=== PATIENT | female | born 1995 | race African-American/Black ===

== ENCOUNTER 2023-12-31 15:45 | Emergency (ER) | payer OTHER, SELFPAY ==
--- NOTE | 2023-12-31 15:48 | ED.BACK ---
HPI - Back Pain/Injury General Chief Complaint: Urogenital-Female Stated Complaint: back pain, lower left side Time Seen by Provider: 12/31/23 16:03 Source: patient, RN notes reviewed and old records reviewed Mode of arrival: ambulatory Limitations: no limitations History of Present Illness HPI Narrative: 28-year-old female presents to the [facility] with complaints of left lower back pain. Patient is concerned that she might have a UTI. 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 Does a lot of pushing pulling lifting. No erythema, ecchymosis. Denies any trauma. No midline tenderness. No loss retention of bowel or bladder. Denies abdominal pain, fevers. Related Data Home Medications Medication Instructions Recorded Confirmed amlodipine 10 mg tablet 10 mg PO DAILY 12/31/23 12/31/23 captopril 50 mg tablet 50 mg PO DAILY 12/31/23 12/31/23 carvedilol 12.5 mg tablet 12.5 mg PO DAILY 12/31/23 12/31/23 furosemide 40 mg tablet 40 mg PO DAILY 12/31/23 12/31/23 Allergies Allergy/AdvReac Type Severity Reaction Status Date / Time Penicillins Allergy Rash Verified 12/31/23 16:37 Review of Systems Review of Systems: All systems reviewed & are unremarkable except as noted in HPI and below Constitutional: Constitutional: Reports no additional constitutional complaints Eyes: Eyes: Reports no additional eye complaints ENT: Reports system reviewed and no additional complaints, except as documented Cardiovascular: Cardiovascular: Reports no additional cardiovascular complaints, Denies chest pain and Denies dyspnea Respiratory: Respiratory: Reports no additional respiratory complaints, Denies chest congestion, Denies cough and Denies dyspnea Gastrointestinal: Gastrointestinal: Reports no additional gastrointestinal complaints, Denies abdominal pain, Denies nausea and Denies vomiting Musculoskeletal: Musculoskeletal: Reports as per HPI and Reports back pain Integumentary/Breasts: Skin/Breast: Reports system reviewed and no additional complaints, except as docu Neurologic: Reports system reviewed and no additional complaints, except as documented Psychiatric: Psychiatric: Reports no additional psychiatric complaints Allergic/Immunologic: Allergic/Immunologic: Reports no additional allergic/immunologic complaints PMFSH Comments At the time of my signature, I reviewed and agree with the nursing past medical, surgical, social, and family history. There is no relevant family history pertinent to the patient complaint. Exam Const: General: cooperative, healthy appearing, comfortable, no acute distress, well developed, alert and well nourished Nutritional Appearance: well nourished Orientation/consciousness: patient oriented x3 Limitations: no limitations HENMT: Head: normal to inspection Ears: hearing grossly normal bilaterally and external ears normal Face/Nose/Sinus: Normal external nose present, Normal nares present, Normal nasal mucous membranes and turbinates present, normal facial exam and face symmetric Face and sinus: normal facial exam and face symmetric Eyes: General: appearance normal, both eyes and all related structures Alignment and Position: alignment normal Periorbital: periorbital findings normal Pupils: Equal, round and reactive pupils present EOM: EOMs intact bilaterally Neck: Neck: normal visual inspection, full ROM, no lymphadenopathy and no meningeal signs Chest: Chest palpation & inspection: normal inspection of the chest Resp: Effort & Inspection: normal respiratory effort and able to speak in complete sentences Cardio: Rate: regular rate Rhythm: regular rhythm GI: GI Palp: No abdominal tenderness : General: Yes no CVA tenderness Back/Spine/Pelvis: Cervical Spine: cervical ROM normal Thoracic/Lumbar Spine: paraspinal muscle tenderness on the left greater than right (Lower lumbar), No thoracic spinal tenderness and No lumbar spinal tenderness Skin: General skin exam: normal color and no rashes or lesions no
[2023-12-31 16:02] VITALS: BP 125/66; PULSE 68; RESP 18; TEMP 36.8; O2SAT 100
== END 2023-12-31 16:50 | disposition home or self-care (01) ==
PROVIDERS: Emergency Provider Nurse Practitioner; PCP Family Medicine
DX: S39.012A Strain of muscle, fascia and tendon of lower back, initial encounter (principal); X58.XXXA Exposure to other specified factors, initial encounter; I10 Essential (primary) hypertension
CPT/HCPCS: 81003; 87086; 99213; G0463

== ENCOUNTER 2024-08-28 11:57 | Emergency (ER) | payer OTHER, SELFPAY | END 2024-08-28 12:33 | disposition left against medical advice (07) | PROVIDERS: Emergency Provider Internal Medicine Hematology & Oncology; PCP Family Medicine | DX: Z53.21 Procedure and treatment not carried out due to patient leaving prior to being seen by health care provider (principal) | CPT/HCPCS: 99199 ==

== ENCOUNTER 2025-04-21 17:50 | Emergency (ER) | payer OTHER, SELFPAY ==
[2025-04-21 18:01] VITALS: BP 161/100; PULSE 85; RESP 18; TEMP 36.5; O2SAT 97
--- NOTE | 2025-04-21 18:13 | ED_ITS ---
HPI - General Adult General Chief complaint: Fall Stated complaint: Left Side Pelvic Pain Source: patient Mode of arrival: ambulatory Limitations: no limitations History of Present Illness HPI narrative: Pt is a 30 y/o female presenting with c/o L. pelvic pain. Pt reports falling while walking in her home 1 week ago. Pt states she fell backwards, into a seated position. She denies striking her head. She denies LOC. She denies feeling dizzy or lightheaded prior to fall. Pt reports persistent, worsening LLQ pain that is now radiating into the RLQ and into her pelvis. The pain is pulsating and constant. No relief with urination. No sx. No paresthesias to the extremities. Denies bowel/bladder incontinence. Denies urinary retention. Denies changes in bowel habits. Denies hematuria, BRBPR. No neck or back pain. Reports working for [employer]--they ran a urine dip which was unremarkable. States she went to [facility] ER prior to coming here but left due to it being too busy. No additional complaints. Related Data Home Medications ?Medication ?Instructions ?Recorded ?Confirmed ?Last Taken ?Type amlodipine 10 mg tablet 10 mg PO DAILY 12/31/23 12/31/23 Unknown History captopril 50 mg tablet 50 mg PO DAILY 12/31/23 12/31/23 Unknown History carvedilol 12.5 mg tablet 12.5 mg PO DAILY 12/31/23 12/31/23 Unknown History furosemide 40 mg tablet 40 mg PO DAILY 12/31/23 12/31/23 Unknown History Allergies Allergy/AdvReac Type Severity Reaction Status Date / Time Penicillins Allergy Rash Verified 04/21/25 17:57 Review of Systems Review of Systems: CONSTITUTIONAL: Denies body aches, fever, chills, or sweats. EYES: Denies visual changes, redness, or discharge. ENT: Denies rhinorrhea, congestion, sore throat, or otalgia. CARDIOVASCULAR: Denies chest pain, palpitations, or edema. RESPIRATORY: Denies cough or dyspnea. GASTROINTESTINAL: Reports LLQ, RLQ abdominal pain, denies nausea, vomiting, or diarrhea. GENITOURINARY: Denies dysuria or hematuria. SKIN: Denies rash, itching, or wounds. MUSCULOSKELETAL: Denies back pain, joint pain, or myalgia. NEUROLOGIC: Denies headache, numbness, tingling, or weakness. PSYCH: Denies depression or anxiety. All systems reviewed & are unremarkable except as noted in HPI and below Exam Narrative: GENERAL: Well-appearing, well-nourished, obese, uncomfortable. HEAD: Normocephalic, atraumatic. EYES: EOMI. No redness or drainage. Conjunctivae normal. ENT: Mucous membranes pink and moist. Nares clear. No rhinorrhea. TMs normal bilaterally. Throat normal. Uvula midline. NECK: Normal AROM. Supple. CHEST: No respiratory distress. Clear to auscultation. HEART: Regular rate and rhythm. No murmur appreciated. Normal peripheral pulses. ABDOMEN: Soft, nondistended, normal active bowel sounds. Moderate TTP to the LLQ, RLQ. MUSCULOSKELETAL: No bony tenderness. EXTREMITIES: Normal range of motion. No edema.No spinal process tenderness. FROM of spine and extremities without pain. SKIN: Warm, dry, no rash. Capillary refill normal. Normal skin turgor. NEURO: No focal deficits. Alert and oriented x3. Gait steady. PSYCH: Normal affect. No signs of depression or anxiety. Course Course Emergency Course: I offered to order pelvic/hip xrays however, given the degree of abdominal tenderness on exam, I will ultimately recommend she be transferred to ER for further diagnostic work up. Pt declined imaging at this facility and requested to be transferred to [facility] via POV. Pt is aware that she should go straight to ER and remain NPO until instructed otherwise. Verbal report given to JHON Lundy Level of Care: Express Care Visit Vital Signs Vital signs: Vital Signs Temperature 97.7 F 04/21/25 18:01 Pulse Rate 85 04/21/25 18:01 Respiratory Rate 18 04/21/25 18:01 Blood Pressure 161/100 H 04/21/25 18:01 Pulse Oximetry 97 04/21/25 18:01 Oxygen Delivery Room Air 04/21/25 18:01 Temperature 97.7 F 04/21/25 18:01 Pulse Rate 85 04/21/25 18:01 Respiratory Rate 18 04/21/25 18:01 Blood Pressure 161/100 H 04/21/25 18:01 Pulse Oximetry 97 04/21/25 18:01 Oxygen Delivery Room Air 04/21/25 18:01 Transfer Transfered to: [facility] Transportation: Other (POV) Transfer rationale: access to higher level of care. Accepting physician: [facility] Differential Diagnosis Differential Diagnosis: hip/pelvic fracture, intraabdominal injury, diverticulitis, colitis, appendicitis Vital Signs Vital Signs: Vital Signs Temperature 97.7 F 04/21/25 18:01 Pulse Rate 85 04/21/25 18:01 Respiratory Rate 18 04/21/25 18:01 Blood Pressure 161/100 H 04/21/25 18:01 Pulse Oximetry 97 04/21/25 18:01 Oxygen Delivery Room Air 04/21/25 18:01 Temperature 97.7 F 04/21/25 18:01 Pulse Rate 85 04/21/25 18:01 Respiratory Rate 18 04/21/25 18:01 Blood Pressure 161/100 H 04/21/25 18:01 Pulse Oximetry 97 04/21/25 18:01 Oxygen Delivery Room Air 04/21/25 18:01 Discharge Plan Discharge Clinical Impression: Abdominal pain, acute, left lower quadrant, Abdominal pain, acute, right lower quadrant, Fall, HTN (hypertension) Patient Disposition: Acute Care Hospital Condition: Stable Patient Language: Kyrgyz Prescriptions: No Action furosemide 40 mg tablet 40 mg PO DAILY carvedilol 12.5 mg tablet 12.5 mg PO DAILY amlodipine 10 mg tablet 10 mg PO DAILY captopril 50 mg tablet 50 mg PO DAILY baclofen 10 mg tablet 10 mg PO TID PRN (Reason: muscle pain) Qty: 10 0RF ibuprofen 600 mg tablet 600 mg PO TID PRN (Reason: fever or pain) Qty: 30 0RF Follow-up/Referrals: Spring,Jenniffer Lowery MD [Primary Care Provider] - Time of Disposition: 18:20
== END 2025-04-21 18:15 | disposition short-term general hospital (02) ==
PROVIDERS: Emergency Provider Registered Nurse; PCP Family Medicine
DX: R10.32 Left lower quadrant pain (principal); R10.31 Right lower quadrant pain; I10 Essential (primary) hypertension; W19.XXXA Unspecified fall, initial encounter
CPT/HCPCS: 99212; G0463

== ENCOUNTER 2025-04-21 18:28 | Emergency (ER) | payer OTHER, SELFPAY ==
--- OUTSIDE RECORDS SUMMARY | 2025-04-21 18:30 | XMS_ITS | Clinical Summary ---
Author Organization [facility] Address [address], [facility] [address] [place] [address] Phone Care Team Providers Care Baby Formula Worker Name Role Phone Jenniffer Londono MD Primary Care Provider + [phone] Allergies No known active allergies Medications amLODIPine (NORVASC) 10 MG Tablet Take 10 mg by mouth daily. Active carvedilol (COREG) 25 MG Tablet Take 25 mg by mouth 2 times daily. 4 Active losartan (COZAAR) 25 MG Tablet Take 25 mg by mouth daily. Active ferrous sulfate 325 (65 Fe) MG Tablet Take 1 Tablet by mouth daily. 60 Tablet 3 5 Active Cyanocobalamin (B-12) 1000 MCG SL Tablet 1,000 mcg by Sublingual route daily for 30 days. 30 Each 2 5 05/09/20 25 Active folic acid (FOLVITE) 1 MG Tablet Take 1 Tablet by mouth daily. 30 Tablet 2 5 Active Active Problems No known active problems Encounters Date Type Department Care Team Description 04/09/2025 Results Follow-Up [facility] [address] [id number] Seema Sandoval RN ERYTHROCYTE SEDIMENTATION RATE (ESR), RETICULOCYTE COUNT (RETIC), FOLIC ACID (FOLATE), Additional followed-up results: 7 04/07/2025 12:00 PM CDT Lab [facility] [address] [phone] Lab, Cc Arethaon Thrombocytosis 04/07/2025 10:30 AM CDT Office Visit [facility] [address] [phone] Bong Shi MD Thrombocytosis (Primary Dx) 04/07/2025 Travel from Last 3 Months Family History Medical History Relation Name Comments Asthma Mother Hypertension Mother Relation Name Status Comments Brother 1 Alive Brother 2 Alive Child 1 Alive Child 2 Alive Child 3 Alive Father Mother Alive Sister Alive Social History Tobacco Use Types Packs/Day Years Used Date Smoking Tobacco: Every Day Cigarettes Cigars Smokeless Tobacco: Never Tobacco Cessation:Ready to Q uit: Not Asked; Counseling Given: Not Answered Alcohol Use Standard Drinks/Week Comments Yes 0 (1 standard drink = 0.6 oz pur e alcohol) rarely Comments Unknown Sex and Gender Information Value Date Recorded Sex Assigned at Not on file Legal Sex Female 2:31 PM CDT Gender Identity Not on file Sexual Orientation Not on file Last Filed Vital Signs Vital Sign Reading Time Taken Comments Blood Pressure 134/84 04/07/2025 10:52 AM CDT Pulse 58 04/07/2025 10:52 AM CDT Temperature 36.9 C (98.4 F) 04/07/2025 10:52 AM CDT Respiratory Rate 18 04/07/2025 10:52 AM CDT Oxygen Saturation 99% 04/07/2025 10:52 AM CDT Inhaled Oxygen Concentration - - Weight 95.3 kg (210 lb) 04/07/2025 10:52 AM CDT Height 157.5 cm (5' 2) 04/07/2025 10:52 AM CDT Body Mass Index 38.41 04/07/2025 10:52 AM CDT Plan of Treatment Upcoming Encounters Date Type Department Care Team (Late st Contact Info) Description 05/17/2025 2:30 PM CDT Office Visit [facility] [address] [phone] Bong Shi MD [address] [place] [phone] Health Maintenance Due Date Last Done Comments Hepatitis C Virus (HCV) Screening 1995 Pneumococcal Immunization Combined (1 of 2 - PCV) 2014 Pap Smear 2016 SARS-COV-2 Immunization (3 - season) 2024 05/20/2021, 04/22/2021 Cervical Cancer Screening (CCS) 2025 HPV/Cotest 2025 Influenza Immunization (#1) 2025 1001/2023, 08/18/2021, 07/07/2019 Respiratory Syncytial Virus (RSV) Immunization (Adult) (1 - 1-dose 75+ series) 2070 Human Papillomavirus (HPV) Immunization Completed 11/21/2010, 07/15/2010, 03/18/2010 Meningococcal Immunization (ACWY) Completed 11/12/2013, 03/18/2010 Hepatitis B Immunization Completed 023, 1995, 1995, Additional history exists TdaP Immunization Completed 07/04/2023, , 03/18/2010 Rotavirus Immunization Aged Out No lo nger eligible based on patient's age to complete this topic Procedures Procedure Name Priority Date/Time Associated Diagnosis Comments CBC WITH AUTO DIFF [place] Routine 04/07/2025 12:01 PM CDT FERRITIN [id number] [place] Routine 04/07/2025 12 :01 PM CDT COMP. METABOLIC PANEL [id number] [place] Routine 04/07/2025 12:01 PM CDT IRON AND TIBC [id number] [place] Routine 04/07/2025 12:01 PM CDT TSH [id number] [place] Routine 04/07/2025 12:01 PM CDT LACTATE DEHYDROGENASE (LD) Routine 04/07/2025 12:01 PM CDT Thrombocytosis VITAMIN B12 Routine 04/07/2025 12:01 PM CDT Thrombocytosis FOLIC ACID (FOLATE) Routine 04/07/2025 1 2:01 PM CDT Thrombocytosis RETICULOCYTE COUNT (RETIC) Routine 04/07/2025 12:01 PM CDT Thrombocytosis ERYTHROCYTE SEDIMENTATION RATE (ESR) Routine 04/07/2025 12:01 PM CDT Thrombocytosis ONKOSIGHT NGS JAK2 V617F REFLEX JAK2 EXON 12, CALR AND H Routine 04/07/2025 12:01 PM CDT Thrombocytosis from Last 3 Months Results * (ABNORMAL) IRON AND TIBC [id number] [place] (04/07/2025 12:01 PM CDT) Iron Bind.Cap.(TIBC) 340 250 - 450 UG/DL CANCER SERVER MANAGER [facility] UIBC 302 131 - 425 UG/DL CANCER SERVER MANAGER [facility] Iron, Serum 38 27 - 159 UG/DL [facility] Iron Saturation 11(L) 15 - 55 % [facility] 04/07/2025 12:0 1 PM CDT Narrative [facility] - 04/08/2025 10:07 AM CDT TESTING PERFORMED AT: [] [facility], [address] [place] [address], [place], [address], PHONE: [phone], IT COMMUNICATIONS SPECIALIST: BRUNO CASTILLO, PHD us Bong Shi MD LAB SEND OUTS Final Resul t CANCER SERVER MANAGER [facility] [place] [address], * FERRITIN [id number] [place] (04/07/2025 12:01 PM CDT) Ferritin, Serum 40 15 - 150 NG/ML CANCER SERVER MANAGER [facility] 04/07/2025 12:0 1 PM CDT Narrative [facility] - 04/08/2025 7:08 AM CDT TESTING PERFORMED AT: [] [facility], [address] [place], [place], [address], PHONE: [phone], IT COMMUNICATIONS SPECIALIST: BRUNO CASTILLO, PHD us Bong Shi MD LAB SEND OUTS Final Resul t CANCER SERVER MANAGER [facility] [address] [place] [address], [place] [phone] * (ABNORMAL) COMP. METABOLIC PANEL [id number] [place] (04/07/2025 12:01 PM CDT) GLUCOSE, SERUM 91 70 - 99 MG/DL [facility] SERVER MANAGER [facility] BUN 5(L) 6 - 20 MG/DL [facility] CREATININE, SERUM 0.66 0.57 - 1.00 MG/DL [facility] EGFR 121 >59 ML/MIN/1.[address] [facility] BUN/CREATININE RATIO 8(L) 9 - 23 [facility] SODIUM, SERUM 139 134 - 144 MMOL/L [facility] POTASSIUM, SERUM 4.0 3.5 - 5.2 MMOL/L [facility] CHLORIDE, SERUM 103 96 - 106 MMOL/L [facility] CARBON DIOXIDE, TOTAL 20 20 - 29 MMOL/L [facility] CALCIUM, SERUM 9.4 8.7 - 10.2 MG/DL [facility] PROTEIN, TOTAL, SERUM 7.1 6.0 - 8.5 G/DL [facility] ALBUMIN, SERUM 4.3 4.0 - 5.0 G/DL [facility] GLOBULIN, TOTAL 2.8 1.5 - 4.5 G/DL [facility] BILIRUBIN, TOTAL 0.3 0.0 - 1.2 MG/DL [facility] ALKALINE PHOSPHATASE, S 90 44 - 121 IU/L [facility] AST (SGOT) 16 0 - 40 IU/L [facility] SERVER MANAGER [facility] ALT (SGPT) 20 0 - 32 IU/L CANCER SERVER MANAGER [facility] 04/07/2025 12:0 1 PM CDT Narrative CANCER SERVER MANAGER [facility] - 04/08/2025 10:07 AM CDT TESTING PERFORMED AT: [] [facility], [address] [place] [address], [address], PHONE: [phone], IT COMMUNICATIONS SPECIALIST: BRUNO CASTILLO, PHD us Bong Shi MD LAB SEND OUTS Final Resul t Performing Organization Address [facility] Co de Phone Number CANCER SERVER MANAGER [facility] [address] [place] [address], [place] [phone] * TSH [id number] [place] (04/07/2025 12:01 PM CDT) TSH 1.250 0.450 - 4.500 UIU/ML CANCER SERVER MANAGER [facility] 04/07/2025 12:0 1 PM CDT [facility] CANCER SERVER [facility] - 04/08/2025 10:07 AM CDT TESTING PERFORMED AT: [] [facility], [address] [place] [address], [id number], PHONE: [phone], IT COMMUNICATIONS SPECIALIST: BRUNO CASTILLO, PHD us Bong Shi MD LAB SEND OUTS Final Resul t Performing Organization Address [facility] Co de Phone Number CANCER SERVER MANAGER [facility] [address] [place] [address], [place] [phone] * (ABNORMAL) CBC WITH AUTO DIFF [place] (04/07/2025 12:01 PM CDT) WBC 9.0 4.0 - 10.0 10*3/uL CANCER SERVER MANAGER [facility] HGB 12.5 11.2 - 15.7 g/dL CANCER SERVER MANAGER [facility] HCT 39.0 34.1 - 44.9 % CANCER SERVER MANAGER [facility] PLT 460(H) 163 - 369 10*3/uL CANCER SERVER MANAGER [facility] MPV 8.9(L) 9.4 - 12.4 fL CANCER SERVER MANAGER [facility] RBC 4.51 3.93 - 5.22 10*6/uL CANCER SERVER MANAGER [facility] MCV 87 79 - 95 fL CANCER SERVER MANAGER [facility] MCH 27.7 25.6 - 32.2 pg CANCER SERVER MANAGER [facility] MCHC 32.1(L) 32.2 - 36.5 g/dL CANCER SERVER MANAGER [facility] RDW 13.4 11.6 - 14.4 % CANCER SERVER MANAGER [facility] Neutrophils % 61.8 36.0 - 66.0 % CANCER SERVER MANAGER [facility] Lymphocytes % 28.4 19.0 - 40.0 % CANCER SERVER MANAGER [facility] Monocytes % 5.8 4.1 - 12.1 % CANCER SERVER MANAGER [facility] Eosinophils % 3.2 0.0 - 3.5 % [facility] SERVER MANAGER [facility] Basophils % 0.4 0.0 - 1.0 % [facility] Absolute Neutrophils 5.6 1.4 - 6.6 10*3/uL [facility] Absolute Lymphocytes 2.6 0.8 - 4.0 10*3/uL [facility] Absolute Monocytes 0.5 0.2 - 1.2 10*3/uL [facility] SERV[facility] Absolute Eosinophils 0.3 0.0 - 0.4 10*3/uL [facility] SERV[facility] Absolute Basophils 0.0 0.0 - 0.1 10*3/ [facility] 04/07/2025 12:0 1 PM CDT us Bong Shi MD LAB SEND OUTS Final Resul t CANCER SERVER MANAGER [facility] [place] [address], * [facility] JAK[facility] V617F REFLEX JAK2 EXON 12, CALR AND H (04/07/2025 12:01 PM CDT) NGS JAK2 V617 RX EXON12 NORMAL CANCER SERVER MANAGER [facility] ONKOSIT NGS MPL SEQUENCING NORMAL CANCER SERVER MANAGER [facility] JAK2 EXON 12 SEQUENCING NORMAL CANCER CE NTER SPECIALISTS [facility] ONKOSIST. [facility] NGS CALR SEQUENCING NORMAL CANCER SERVER MANAGER [facility] ONSIST. [facility] NGS JAK2 V617F SEQUENCING NORMAL CANCER CENT ER SPECIALISTS [facility] Comment: On[employer] JAK2 V617F Rx JAK2 Exon 12, CALR & MPL Final Report - RESULT SUMMARY: NORMAL - DETECTED GENOMIC ALTERATIONS: No Mutations Identified - TUMOR TYPE: Not Provided - CLINICAL INFORMATION: Provided ICD-10 code: D75.839 (thrombocytosis, unspecified). - PERTINENT NEGATIVE RESULTS: The following genes are NEGATIVE for clinically relevant mutations. Mutational hotspots and surrounding exonic regions were interrogated for DNA level point mutations and indels (fusions not assayed). CALR, JAK2 Exon12, JAK2 V617F, MPL - MUTATIONAL HOTSPOTS: The following recurrently mutated codons demonstrated adequate sequencing coverage depths and show wild type sequences only. Gene: CALR Codons: 367, 385 Gene: JAK2 Codons: 533, 534, 535, 536, 537, 538, 539, 540, 541, 542, 543, 544, 545, 546, 547, 617 Gene: MPL Codons: 515 The following recurrently mutated codons demonstrated inadequate sequencing coverage depths (<100x), and the possibility of undersensitive detection cannot be excluded. Not Applicable - TRANSCRIPT ACCESSIONS FOR INTERROGATED GENES: Gene: CALR Transcript ID: [id number] Gene: JAK2 Transcript ID: [id number] Gene: MPL Transcript ID: [id number] - COVERAGE DEPTHS: Among the following targeted exons, >50% of coding sequences failed to achieve >100x coverage depths. Analytic sensitivity for potentially relevant genomic alterations may therefore be limited among the following interrogated loci: Not Applicable INTERPRETATION SUMMARY SEE BELOW CANCER [facility] Comment: INTERPRETATION SUMMARY: - This was a NORMAL sequencing study in which no disease associated mutations or variants of unclear significance were identified in the tested specimen. The absence of mutations should be interpreted in the context of other clinical and pathologic findings. Normal sequencing results may be a consequence of testing a sample with little or no neoplastic cells present. Clinical and pathologic correlation is required to interpret these findings. METHODS SEE BELOW [facility] Comment: METHODS: Tissue macrodissection and DNA isolation from tumor enriched areas are based on histologic review by an appropriately board certified pathologist; specimens with minimal tumor cellularity may be rejected. Nucleic acid is isolated from the submitted specimen. Anchored Multiplex PCR (AMP) is performed to generate target-enriched next generation sequencing (NGS) libraries. AMP utilizes unidirectional gene-specific primer (GSP) oligonucleotides that enrich for both known and unknown mutations. Each genomic DNA fragment is also tagged with a unique molecular identifier sequence (BERTHA), used after sequencing on an Illumina Portapureq instrument ([place], [place]) with paired end, 151 base pair reads to collapse PCR duplicates and enable accurate counting of variant allelic frequencies. A minimum number of 100 unique reads (after removal of PCR duplicates) to detect a mutation is required. An automated process that takes into account statistical confidence of base calling and alignment and mapping quality identifies variants (Derivix Analysis Software version 6.2.7, Released 24 Feb 2020). Following mapping of the read data to the human genome (reference build [id number]/hg19), single nucleotide variants (SNVs), and insertion deletion events (Indels) with an allele frequency (AF) greater than 2% are detected utilizing [employer] Analysis bioinformatic analytical pipeline with the exception of FLT3 (0.8% AF), JAK2 p.V617F (0.8% AF) and MYD88 p.L265P (1% AF). Detection of Insertions larger than 63 bases have not been validated. Detection of Deletions larger than 52 bases have not been validated. Reported variants include known disease associated mutations and unclear variants with little or no literature support. Benign population polymorphisms are not included in the report. The mutation hotspots of the following genes were interrogated by this test: JAK2 V617F, JAK2 Exon 12, MPL and CALR.Variant Tier categorization is rendered in accordance with the AMP/ASCO/CAP consensus recommendations (see Li et al. Standards and Guidelines for the Interpretation and Reporting of Sequence Variants in Cancer: A Joint Consensus Recommendation of the Association for Molecular Pathology, [place] Society of Clinical Oncology, and College of [place] Pathologists. The Journal of molecular diagnostics: JMD. 2017 Sep;19(1):4-23. doi: 10.1016/j.jmoldx.2016.10.002. PubMed Central PMCID: QRF6114034. PubMed PMID: (09983354)). OnkoSightAdvanced was developed and its performance characteristics were determined by [employer], a division of [employer]. This test has not been cleared or approved by the US Food and Drug Administration (FDA). The FDA has determined that such a clearance or approval is not necessary. Pursuant to the requirements of CLIA'88, this laboratory has established and verified the tests accuracy and precision. However, a false positive or false negative result incurred during any phase of the testing cannot be completely excluded. Large insertion/deletion (eg. FLT3-ITD aberrations) may not be detected by this assay due to the limit of sequencing read length and bioinformatics processing. This assay does not detect translocation/gene fusion. This assay does not determine variant causality, or whether a variant is inherited or somatically acquired. These results may be used for clinical or research purposes and therefore should be carefully considered within the context of other clinical and laboratory data. In the absence of an appropriate clinical context, the clinical utility of OnkoSighttesting is not clearly defined. The information contained in this report reflects the current interpretation of the findings as of the date of the report, based on the available scientific information. This information, which comes from numerous sources, is subject to jacket changer time in response to future scientific and medical findings and correlations. [employer] makes no representation or warranty of any kind regarding the accuracy of information provided or contained in these manuscripts, references or other sources of information. If any of the information provided by or contained in the referenced material is later deemed to be inaccurate, this may impact the accuracy of this report and interpretation of the findings. [employer] is not obligated to notify you of any impact that additional or modified information, or future scientific or medical research may have on this report. The laboratory is not responsible for reanalysis of the data or updated classification of this report or past reportsfindings as the knowledge evolves. A medical provider can request a reassessment of clinical significance of variants and/or re-review of the clinical interpretation of the findings. Additional charges may apply for the updated report. Please contact the laboratory for more information if update is requested. This assay has been approved by the [facility] based on initial validation; orthogonal testing for full validation is currently ongoing. Please contact the laboratory for more information if update is requested. REFERENCES 1 SEE BELOW CANCER SERVER MANAGER [facility] Comment: REFERENCES: 1. Radha MM, Samantha M, Margoth EJ, Valeri S, Neha NI, Scott S, Demian AM, Sajan CL, Christelle DJ, Yi A, [place]. Standards and Guidelines for the Interpretation and Reporting of Sequence Variants in Cancer: A Joint Consensus Recommendation of the Association for Molecular Pathology, [place] Society of Clinical Oncology, and College of [place] Pathologists. The Journal of molecular diagnostics : JMD. 2017 Sep;19(1):4-23. doi: 10.1016/j.jmoldx.2016.10.002. PubMed PMID: 66156423. PubMed Central PMCID: [id number]. 2. Genome Aggregation Database (gnomAD), [place], [place] (URL: https://gnomad.broadFly Victortitute.org) [March,] 3. Lisy Batres. World health organization classification, evaluation, and genetics of the myeloproliferative neoplasm variants. Hematology. [place] Society of Hematology. Education Program. 2010;5996970-0. doi: 10.1182/asheducation-2010.1.250. PubMed PMID: 78755660. 4. Coy P, Kalpesh A, Landy R, Looser R, Anton-Solomon H, Xin I, Girsberger S, Bhargav T, Lina J, Keller M, Marlee C, Bryant R, Skcherrie RC. Clonal evolution and clinical correlates of somatic mutations in myeloproliferative neoplasms. Blood. 2014 Dec 31;123(14):2220-8. Epub 2013Oct 28. doi: 10.1182/jkswz-6781-05-851978. PubMed PMID: 37621172. 5. Jenniferini E, Bernardis I, Artusi V, Artuso L, Roncabhavinia E, Fletcher P, Clintoni L, Farrahani C, Porshae F, Serafino G, Tomi C, Betsy E, Devika A, Zaheer T, Elier Bradford, Bryant S, Srinivas R, Elisa OSMAN, Mami Bedolla, Targeted cancer exome sequencing reveals recurrent mutations in myeloproliferative neoplasms. Leukemia. 2014 January;28(5):1052-9. Epub 2012Jul 21. doi: 10.1038/kwasi.2013.302. PubMed PMID: 08398209. PubMed Central PMCID: AHZ7013947. 6. Kalyan T, Simon D, Yuly N, Vitaliy N, Blari Y, Krista Y, Enjacqueline Y, Juanis N, Uchida T, Kaanne Y, Noam K, Camronta CHERIE, Nagase R, Horikawa S, Marly Y, Saimelda M, Fukuymelida T, Bony K, Oki T, Leroy F, Vanna Higginbotham. The molecular basis of myeloid malignancies. Proceedings of the [place] Academy. Series B, Physical and biological sciences. 2014;90(10):389-404. PubMed PMID: 67687488. PubMed Central PMCID: KYZ1369750. REPORT FOOTER SEE BELOW CANCER SERVER MANAGER [facility] Comment: Airam Toure M.D., [employer] Central Office Installer Electronically signed by Mercedez Teran, PhD, [facility] [employer] is a division of [employer] [facility] [place] [address] Created SatApr 13 18:20:12 EDT 2024 04/07/2025 12:0 1 PM CDT Narrative CANCER SERVER MANAGER [facility] - 04/13/2025 6:46 PM CDT Testing performed at: [facility] [place] [address], [employer] Central Office Installer: Dr. Tin Zarate M.D.; [facility] Accn#:[id number] Release to patient->Immediate us Bong Shi MD LAB SEND OUTS Final Resul t CANCER SERVER MANAGER [facility] [place] [address], [place] [phone] * VITAMIN B12 (04/07/2025 12:01 PM CDT) Vitamin B12 186 180 - 914 pg/mL CANCER SERVER MANAGER [facility] Blood 04/07/2025 12:0 1 PM CDT [facility] CANCER SERVER MANAGER [facility] - 04/08/2025 2:21 PM CDT Release to patient->Immediate us Bong Shi MD CHEMISTRY ORDERABLES Final Result Performing Organization Address City/[facility]/ZIP Co de Phone Number CANCER SERVER MANAGER [facility] [address] [place] [address], [place] [phone] * ERYTHROCYTE SEDIMENTATION RATE (ESR) (04/07/2025 12:01 PM CDT) Erythrocyte Sedimentation Rate 10 0 - 30 mm/hr CANCER SERVER MANAGER [facility] Blood 04/07/2025 12:0 1 PM CDT [facility] CANCER SERVER MANAGER [facility] - 04/07/2025 1:19 PM CDT Release to patient->Immediate us Bong Shi MD HEMATOLOGY ORDERABLES Final Result Performing Organization Address [facility] Co de Phone Number [facility] [facility] [address] [place] [address], * RETICULOCYTE COUNT (RETIC) (04/07/2025 12:01 PM CDT) Reticulocyte count 1.60 0.50 - 1.70 % CANCER SERVER MANAGER [facility] RET-He 30.50 28.20 - 36.60 pg CANCER SERVER MANAGER [facility] Comment: RET-He is a direct assessment of incorporation of iron into erythrocyte hemoglobin. It provides an indirect measure of the iron available for new erythropoiesis over past 2-4 days. Blood 04/07/2025 12:0 1 PM CDT [facility]ER [facility]ER [facility] - 04/07/2025 12:21 PM CDT Release to patient->Immediate us Bong Shi MD HEMATOLOGY ORDERABLES Final Result Performing Organization Address [facility] Co de Phone Number CANCER SERVER MANAGER [facility] [place] [place] [address], [place] [phone] * (ABNORMAL) LACTATE DEHYDROGENASE (LD) (04/07/2025 12:01 PM CDT) LDH 124(L) 140 - 271 U/L CANCER SERVER MANAGER [facility] Blood 04/07/2025 12:0 1 PM CDT [facility] CANCER [facility]ER [facility]NA[facility] - 04/07/2025 12:55 PM CDT Release to patient->Immediate us Bong Shi MD CHEMISTRY ORDERABLES Final Result Performing Organization Address [facility] de Phone Number CANCER SERVER MANAGER [facility] [place] [address], [place] [phone] * (ABNORMAL) FOLIC ACID (FOLATE) (04/07/2025 12:01 PM CDT) Folate 5.34(L) >=5.90 ng/mL CANCER SERVER MANAGER[facility] Blood 04/07/2025 12:0 1 PM CDT [facility] CANCER SERVER [facility]NA[facility] - 04/08/2025 2:21 PM CDT Release to patient->Immediate IS THE PATIENT REQUIRED TO BE FASTING FOR 12 HOURS?->No us Bong Shi MD CHEMISTRY ORDERABLES Final Result Performing Organization Address [facility] Co de Phone Number CANCER SERVER MANAGERCHI [facility] [place] [address], [place] [phone] from Last 3 Months Insurance MEDICAID AETNA [facility] Care Teams Baby Formula Worker Relationship Specialty Start Date End Date Jenniffer Londono MD [address] [facility] [address] [place] [address] PCP - General Internal Medicine 03/26/25
--- OUTSIDE RECORDS SUMMARY | 2025-04-21 18:30 | XMS_ITS | Referral Summary ---
Author Organization [facility] Address [address] [place] [address] Care Team Providers Care Ship Worker Name Role Phone Tin Engle MD Primary Care Provider [phone] Encounters Date Type Department Care Team Description 01/27/[address] [facility] Department of Surgery [address] [place] [address] [place] [address] Prema Horan 01/21/2025 8:10 AM CDT Lab [facility] [address] [place] [address] for Outpatient Health [place], [place] [id number] Umbilical hernia without obstruction and without gangrene from Last 3 Months Allergies Active Allergy Reactions Criticality Noted Date Comments Amoxicillin-Pot Clavulanate Rash Medium Penicillins Hives,Rash Medium 11/30/2017 Hives Medications acetaminophen 500 mg capsuleIndicati ons:Pain Take 2 capsules (1,000 mg total) by mouth every 6 (six) hours as needed for pain 60 tablet 08/12/2023 Active losartan (COZAAR) 25 mg tablet Take 1 tablet (25 mg total) by mouth daily Active amLODIPine (NORVASC) 10 mg tablet Take 1 tablet (10 mg total) by mouth daily Active carvediloL (COREG) 25 mg tablet Take 1 tablet (25 mg total) by mouth 2 (two) times a day with meals Active furosemide (LASIX) 40 mg tablet Take 1 tablet (40 mg total) by mouth 2 (two) times a day Active captopriL (CAPOTEN) 50 mg tablet Take 1 tablet (50 mg total) by mouth 2 (two) times a day 05/19/2024 Active Active Problems Problem Noted Date Diagnosed Date Umbilical hernia 03/06/2023 Overview (06/21/2023): 03/06 - Reports pain at umbilicus and area superior to umbilicus. States it is intermittent and worsened with activity. Exam tender to palpation. 2cm area superior to umbilicus c/w umbilical hernia. Patient given precautions about incarceration and given ABD binder. Will CTM. Patient with questions about umbilical hernia at 06/21 visit. Wondering if it can be repaired at the time of her . Discussed that given we would be performing her section via Pfannenstiel, we likely would not be able to access her hernia at that time. Discussed that we could refer her to General Surgery for repair . Cystic fibrosis carrier 01/28/2023 Overview (01/28/2023): FOB tested in last and is negative Sciatic nerve pain 01/28/2023 Overview (01/28/2023): 01/28- Reports h/o sciatic nerve pain. Has previously been referred to PT. Recently started to act up. Encouraged exercises and walking. Will CTM. Pt to consider PT but at this time declines referral. H/O section 08/18/2019 Overview (06/21/2023): Two previous rCS. Discussed in clinic 06/21/23. Patient desires rCS, as she is afraid of pushing a baby out. Patient also sure that this is her last child. Discussed tubal at the time of rCS, patient has signed state consents but she is still considering. Afraid of how her cycles might change after a tubal. Counseled patient that generally a tubal or salpingectomy should not alter menstrual cycles. Resolved Problems Problem Noted Date Diagnosed Date Resolved Date Encounter for maternal care for low transverse scar from repeat delivery 08/09/2023 07/22/2024 Overview (08/09/2023): Chantal Sanders is a 28 y.o. female at 38w5d who is dated by 1st trimester ultrasound and is being admitted for a scheduled repeat due to cHTN . Admit to L&D: Consents signed and placed in chart. Labs: CBC and T&S pending. section after labs return. FWB: Continuous monitoring. tracing category I. ID: 3rd trimester HIV (>28 wga) negative on 07/04. GBS negative on 07/17 . RPR on admission: pending. Membrane Status: intact. Indications for UDS: none. Verbal consent obtained for UDS: Not indicated. MOF: Plans to breastfeed. Urine drug screen not indicated. Patient informed of results: N/A. MOC: Desires permanent sterilization, consents mature and signed on 06/12 (visualized in medical record). Pain management: CSE to be placed in the OR. Post DVT prophylaxis: The patient has the following MAJOR risk factors none and the following MINOR risk factors BMI 30-39, delivery, and parity >/=3. enoxaparin 40 mg daily will be ordered for VTE prophylaxis . complications: #Hx CS x2: LTCS x2, unknown indications. Last op note with thick adhesive peritoneal band and fascial adhesive disease. Desires rCS. #cHTN: Baseline CBC/CMP wnl, UPC 0.06. Current regimen: labetalol 200mg BID. For CBC/CMP on admission. #Umbilical hernia: 2cm area superior to umbilicus c/w umbilical hernia. For referral to general surgery for repair. #CF carrier: Partner testing negative. #Sciatica: PT referral previously sent. #MO: BMI 35. #Rubella NI: For MMR . care following delivery 08/09/2023 07/22/2024 Overview (08/12/2023): # ID: Afebrile. WBC 19 from 11, no signs/symptoms of infection. CTM at this time. #Rubella NI: For MMR , ordered # Heme: EBL 1000 mL. Hemodynamically stable. POD1 Hgb 7.4. counseled and ordered iron infusion # CV/Pulm: Chronic hypertension - Blood pressures well controlled on labetalol 200 BID. Asymptomatic, denies MONDRAGON/RUQ pain/vision changes. CBC/CMP WNL, UPC not collected. Enrolled in home BP monitoring. # GI/: Tolerating PO. Voiding spontaneously. #Umbilical hernia: 2cm area superior to umbilicus c/w umbilical hernia. For referral to general surgery as outpatient for repair. #Sciatica: PT referral previously sent. # Pain: not fully controlled with above regimen. 1 time dose oxy given and encouraged patient to take gabapentin today. # MOC: s/p BTL. # MOF: . Urine drug screen not indicated. Patient informed of results: N/A. # Post DVT prophylaxis: The patient has the following MAJOR risk factors none and the following MINOR risk factors BMI 30-39, delivery, and parity >/=3. enoxaparin 40 mg daily ordered for VTE prophylaxis. # Disposition: Follow up task sent to [facility] scheduling pool. Continue routine care. Desires dc home tomorrow Chronic hypertension affecting 01/28/2023 07/22/2024 Overview (06/21/2023): S/p counseling. CURRENT REGIMEN: ASA 81 mg daily, labetolol 200 BID Plan: [x] ASA at 12 weeks [x] Baseline labs (CBC, CMP, UPC): Plt 398, Cr 0.61, AST/ALT 20/19, UPC 0.06 [ ] Secondary HTN work-up (if resistant to tx, dx < 30 years): N/A [x] EKG/Echo (if dx>4 years or >30): EKG NSR 05/29/23 [ ] Serial growth ultrasound starting at 24 weeks: most recently AGA 06/21 [ ] Weekly testing at 32 weeks if requiring antihypertensive: ordered today Encounter for supervision of normal in third trimester 01/28/2023 07/22/2024 Overview (07/24/2023): 1st Trimester: [x] Dating Criteria:1st T [x] Labs: Rh Pos, Ab Neg, Rubella NI, VZV I, HIV NR, RPR NR, HepBSAg NR, Hep C Ab NR [x] GC/CT/Trich:neg panel [x] UCx: CIG [x] vitamins [x] Genetic Screening: low risk, male [x] CF/SMA carrier screening CF carrier , FOB negative [x] Hgb electrophoresis AA [x] Pap: NILM [ ] PNBHS referral (if indicated) [x] ASA at 12 weeks (if indicated) [ ] A1c: 5.5 [ ] Feeding Preferences Survey: Benefits of discussed with patient and partner 2nd Trimester: [x] Anatomy ultrasound- placenta posterior [x] CBC 10.9/33.3 [x] 1hr gtt at 24-28wks: 107 [x ] Flu Shot (Sep-Dec) given 10 [x] Tdap (27-36wks) given 07/04 [ ] Rhogam (if Rh neg): O+ [ ] Childbirth Classes discussed [x ] Education (colostrum, expected breast changes, plan for RTW) and Breast Pump Ordered 3rd Trimester: [x ] CBC/HIV/RPR/T&S- NR NR [x ] GBS neg [x ] GC/CT/Trich (if indicated) neg [x ] Final BF-ing Discussion: S2S, Baby Friendly, LC Support, PP experience Counseling: [x] Method of delivery: Plan for repeat section. Will have resident consult- done. Scheduled 08/09 at 1330pm [x] MOC: considering tubal. If not mirena. Tubal papers signed, [x] MOF: . Pump ordered on 07/04 [x ] Education: Completed in all 3 trimesters [x] Braided Rug Maker: Dr. Flavio Munguia [x ] Car seat Discussed [x] PP Depression Counseling Obesity complicating pregnan cy in second trimester 01/28/2023 07/22/2024 Overview (06/21/2023): BMI: 34.9 at IOB S/p counseling. Plan: [x] Early GTT: A1c 5.5 [x] Specialized anatomy ultrasound [] Serial growth ultrasounds q4 weeks starting at 24 weeks: see cHTN [] Anesthesia consult in third trimester if BMI >/= 50: N/A [] testing per cHTN problem Immunizations Immunization Administration Dates Next Due Influenza, Quadrivalent, Kira l Culture-based MDCK, Antibiotic Free, Intramuscular 07/07/2019 Influenza, Quadrivalent, Spl it, Preservative Free, Intramuscular 07/04/2023 MMR 08/12/2023(Deferred: Patient Refused),08/09/2023(Deferred: No longer needed),09/27/2019(Deferred: Contraindication - MMR already given),09/27/2019 Tdap 07/04/2023,07/23/2019 Social History Tobacco Use Types Packs/Day Years Used Date Smoking Tobacco: Some Days Cigarillos Last attempted to quit: 01/04/2023 Smokeless Tobacco: Never Tobacco Cessation:Ready to Q uit: Not Asked Alcohol Use Standard Drinks/Week Comments No 0 (1 standard drink = 0.6 oz pur e alcohol) Humiliation, Afraid, Rape, and Kick questionnair e Answer Date Recorded Within the last year, have y ou been afraid of your partner or ex-partner? No 01/23/2023 Within the last year, have y ou been humiliated or emotionally abused in other ways by your partner or ex-partner? No Within the last year, have y ou been kicked, hit, slapped, or otherwise physically hurt by your partner or ex-partner? No 01/23/2023 Within the last year, have y ou been raped or forced to have any kind of sexual activity by your partner or ex-partner? No 01/23/2023 Social Connection and Isolat ion Panel [NHANES] Answer Date Recorded In a typical week, how many times do you talk on the phone with family, friends, or neighbors? More than three times a week 08/10/2023 How often do you get togethe r with friends or relatives? Once a week 08/10/2023 How often do you attend chur ch or voodoo services? Never 08/10/2023 Do you belong to any clubs o r organizations such as voodoo groups, unions, fraternal or athletic groups, or school groups? No 08/10/2023 How often do you attend meet ings of the clubs or organizations you belong to? Never 08/10/2023 Are you , , di vorced, , never , or living with a partner? Living with partner 08/10/2023 AUDIT-C Answer Date Recorded Q1: How often do you have a drink containing alc ohol? Monthly or less 12/15/2024 Q2: How many drinks containi ng alcohol do you have on a typical day when you are drinking? 1 or 2 12/15/2024 Q3: How often do you have si x or more drinks on one occasion? Never 12/15/2024 Overall Financial Resource Strain (CARDIA) Answe r Date Recorded How hard is it for you to pa y for the very basics like food, housing, medical care, and heating? Not very hard 08/10/2023 PHQ-2 Answer Date Recorded PHQ-2 Total Score (If total score is 3 or more points, staff should administer the PHQ-9) 0 12/21/2019 [facility] - Occupational Stress Questionnaire Answer Date Recorded Do you feel stress - tense, restless, nervous, or anxious, or unable to sleep at night because your mind is troubled all the time - these days? To some extent 01/23/2023 Exercise Vital Sign Answer Date Recorde d On average, how many days pe r week do you engage in moderate to strenuous exercise (like a brisk walk)? 0 days 01/23/2023 On average, how many minutes do you engage in exercise at this level? 0 min 01/23/2023 Hunger Vital Sign Answer Date Recorded Within the past 12 months, y ou worried that your food would run out before you got the money to buy more. Never true 12/16/19 25 Within the past 12 months, t he food you bought just didn't last and you didn't have money to get more. Never true 12/15/2024 PRAPARE - Transportation Answer Date Re corded In the past 12 months, has l ack of transportation kept you from medical appointments or from getting medications? No 07/31 In the past 12 months, has l ack of transportation kept you from meetings, work, or from getting things needed for daily living? No 08/10/2023 Housing Stability Vital Sign Answer Mendez e Recorded In the last 12 months, was t here a time when you were not able to pay the mortgage or rent on time? No 08/10/2023 In the last 12 months, how many places have you lived? 1 08/10/2023 In the last 12 months, was t here a time when you did not have a steady place to sleep or slept in a skilled nursing (including now)? No 08/10/2023 [place] Depression Scale Answer Date Recorded [place] Depression Scale Total 6 09/25/2023 The thought of harming myself has occurred to me . Never 09/25/2023 Housing Stability Vital Sign Answer Mendez e Recorded In the last 12 months, was t here a time when you were not able to pay the mortgage or rent on time? No 08/10/2023 Number of Times Moved in the Last Year Not on fi le 08/10/2023 Homeless in the Last Year Not on file 2022 Personal Safety Answer Date Recorded Have you ever been in or are you currently in a harmful physical or emotional relationship or is someone making you feel afraid or unsafe? Denies 08/09/2023 Education Answer Date Recorded What is the highest level of school you have completed or the highest degree you have received? 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 on file Not on file Not on file Last Filed Vital Signs Vital Sign Reading Time Taken Comments Blood Pressure 166/91 12/15/2024 1:00 PM CDT Pulse 91 12/15/2024 1:00 PM CDT Temperature 36.9 C (98.4 F) 12/15/2024 1:00 PM CDT Respiratory Rate 16 07/22/2024 10:00 AM CDT Oxygen Saturation 95% 12/15/2024 1:00 PM CDT Inhaled Oxygen Concentration - - Weight 93.6 kg (206 lb 4.8 oz) 12/15/2024 1:00 P M CDT Height 157.5 cm (5' 2) 12/15/2024 1:00 PM CDT Body Mass Index 37.73 12/15/2024 1:00 PM CDT Plan of Treatment Not on file Procedures Procedure Name Priority Date/Time Associated Diagnosis Comments NICOTINE METABOLITE SCREEN, URINE Routine 01/21/2025 8:14 AM CDT Umbilical hernia without obstruction and without gangrene PAP WITH REFLEX TO HIGH RISK HPV Routine 01/28/2023 7:25 AM CDT Supervision of other normal , antepartum HEPATITIS C ANTIBODY Routine 01/23/2023 10:19 AM CDT care, antepartum from Last 3 Months or Most Recently Relevant to Health Maintenance Results * (ABNORMAL) Nicotine metabolite screen, urine (01/21/2025 8:14 AM CDT) Nicotine, ur 12(H) <5.0 ng/mL Fortine ref Lab Cotinine, ur 12(H) <5.0 ng/mL [facility] Anabasine ur <2.0 <2.0 ng/mL [facility] Comment: ADDITIONAL INFORMATION This test was developed and its performance characteristics determined by [facility] in a manner consistent with CLIA requirements. This test has not been cleared or approved by the U.S. Food and Drug Administration. Test Performed by: [facility] - [address] [place] [address] Communications Tower Technician: Mian Tobias Ph.D.; CLIA# [id number] Nornicotine, ur <2.0 <2.0 ng/mL [facility] Urine 01/21/2025 8:14 AM CDT 01/21/2025 9:46 AM CDT us Ilana Gold MD LAB URINE ORDERABLES Final R esult [facility]DA [facility] [place] [address] [facility] * Pap with reflex to High Risk HPV (01/28/2023 7:25 AM CDT) Thin prep (Pap test) 01/28/2023 7:25 AM CDT 01/28/2023 10:14 AM CDT Narrative PATHOLOGY [facility] - 01/30/2023 11:50 AM CDT EPIC results best viewed via link to PDF [facility] Tyra Wood [facility] [place] [address] Note to Patients: This report may contain a detailed description of human tissue sent by a health care provider to the laboratory for pathologic evaluation. The content of this report is essential for diagnosis and may provide important critical findings. This information may be unfamiliar to patients to review without a medical professional present. It is advised that the patient review this report in the presence of a health care provider who can answer questions and explain the details. 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 Location: Patient Type: [facility] Ancillary Taken: 01/28/2023 Received: 01/28/2023 Accessioned: 01/29/2023 Reported: 01/30/2023 Physician(s): Carl Bain RN FINAL INTERPRETATION SOURCE OF SPECIMEN Liquid based Thin Prep pap with Reflex HPV: STATEMENT OF ADEQUACY - Satisfactory for evaluation - No endocervical/transformation zone sample present in a patient GENERAL CATEGORIZATION: - Negative for squamous intraepithelial lesion or malignancy sloane/01/30/2023 11:50 JACQUELIN Camarillo(ASCP) Report Electronically Reviewed and Signed Out By JACQUELIN Camarillo(ASCP) 01/30/2023 11:50:27 Cervicovaginal Cytology (Pap Test) Disclaimer: The Pap test is a screening test used to detect cervical cancer and its precursors; it is not a diagnostic procedure. False negative and false positive results do occur. Pap test results should be interpreted in the context of pertinent clinical information and biopsy results as indicated. CMS Clinical Laboratory Improvement Amendments (CLIA) mandate that cytologic and histologic results be correlated for laboratory quality assistant & improvement standards. FOR ALL HIGH-GRADE CASES we request submission of follow-up histological material and/or reports that have not been previously provided so that we may fulfill said required standards. Gross Description A. Liquid based Thin Prep pap with Reflex HPV: Cervical/vaginal - Screening ThinPrep Clinical Diagnosis and History Last Menstrual Period: 11/13 Menstrual History: The patient is a 27 year old woman with 2019 pap NIL. Report Images and scanned documents, if included only viewable in PDF version The performance characteristics of some immunohistochemical stains, in-situ hybridization and fluorescence in-situ hybridization tests and immunophenotyping by flow cytometry cited in this report (if any) were determined by the Surgical Pathology Department at [facility] as part of an ongoing quality control auditor program and in compliance with federally mandated regulations drawn from the Clinical Laboratory Improvement Act of 1988 (CLIA '88). Some of these tests rely on the use of analyte specific reagents and are subject to specific labeling requirements by the US Food and Drug Administration. Such diagnostic tests may only be performed in a facility that is certified by the Department of Health and Human Services as a high complexity laboratory under CLIA '88. The FDA has determined that such clearance or approval is not necessary. This test is used for clinical purposes. It should not be regarded as investigational or for research. Nevertheless, federal rules concerning the medical use of analyte specific reagents require that the following disclaimer be attached to the report: This test was developed and its performance characteristics determined by the Surgical Pathology Department of [facility]. It has not been cleared or approved by the U. S. Food and Drug Administration. Carl Bain NP LAB CYTOLOGY ORDERABLES Mara monteiro Result PATHOLOGY [facility] [address] Floor [place], [place] [phone] * Hepatitis C antibody (01/23/2023 10:19 AM CDT) Hep C Ab Nonreactive Nonreactive LINDA [facility] Comment:Antibodies to HCV no t detected. Does NOT exclude the possibility of recent exposure to HCV. Current interpretive data was last revised on 22 Blood 01/23/2023 10:1 9 AM CDT 01/23/2023 10:53 AM CDT us Rosanna Covington REEL REPAIRER LAB MICROBIOLOGY - GEN ERAL ORDERABLES Final Result LINDA [facility] [place] [address] from Last 3 Months or Most Recently Relevant to Health Maintenance Insurance AETNA [facility] [place] [employer] [facility] CHOICE PLUS AETNA [facility] [place] Advance Directives For more information, please contact: [phone] * Full Code (Latest Code Status on File) Date Activated Date Inactivated Comments 08/09/2023 6:17 PM 08/12/2023 9:26 PM * Full Code Date Activated Date Inactivated Comments 08/09/2023 11:36 AM 08/09/2023 6:17 PM Full CPR in case of cardiopulmonary arrest * Full Code Date Activated Date Inactivated Comments 09/24/2019 4:00 PM 09/27/2019 4:49 PM * Full Code Date Activated Date Inactivated Comments 09/24/2019 7:45 AM 09/24/2019 4:00 PM Full CPR i n case of cardiopulmonary arrest Care Teams Ship Worker Relationship Specialty Start Date End Date Tin Engle MD PCP - General Family Medicine 12/07/19
--- OUTSIDE RECORDS SUMMARY | 2025-04-21 18:30 | XMS_ITS | Clinical Summary ---
Author Organization [facility] Address [address] [place] [address] Care Team Providers Care Renewals Specialist Name Role Phone Tin Engle MD Primary Care Provider Allergies Active Allergy Reactions Criticality Noted Date [...] Diagnosed Date Umbilical hernia 03/06/2023 Overview (06/21/2023): 6/7 - Reports pain at umbilicus and area [...] # Disposition: Follow up task sent to [facility] scheduling pool. Continue routine care. Desires dc home tomorrow Chronic hypertension affecting 01/28/2023 07/22/2024 Overview (06/21/2023): S/p counseling. CURRENT REGIMEN: ASA 81 mg daily, labetolol 200 BID Plan: [x] ASA at 12 weeks [x] Baseline labs (CBC, CMP, UPC): Plt 398, Cr 0.61, AST/ALT , UPC 0.06 [ ] Secondary HTN work-up [...] 107 [x ] Flu Shot (Sep-Dec) given 07/04 [x] Tdap (27-36wks) given 07/04 [ ] [...] Education: Completed in all 3 trimesters [x] Section Cutter: Dr. Flavio Munguia [x ] Car seat [...] 50: N/A [] testing per cHTN problem Encounters Date Type Department Care Team Description 01/27/2025 Telephone [facility] Department of Surgery [address] [facility] Advanced Medicine 12th [place] [address] [place] [address] Prema Horan 01/21/2025 8:10 AM CDT Lab [facility] [address] [facility] [place] [address] Umbilical hernia without obstruction and without gangrene from Last 3 Months Immunizations Immunization Administration Dates Next Due Influenza, Quadrivalent, Kira l Culture-based MDCK, Antibiotic Free, Intramuscular 07/07/2019 Influenza, Quadrivalent, Spl it, Preservative Free, Intramuscular 07/04/2023 MMR 08/12/2023(Deferred: Patient Refused),08/09/2023(Deferred: No longer needed),09/27/2019(Deferred: Contraindication - MMR already given),09/27/2019 Tdap 07/04/2023,07/23/2019 Surgical History Surgery Date Site/Laterality Comments OVARIAN CYST REMOVAL unsure laterality SECTION 2018 Medical History Medical History Date Comments Ovarian cyst Gastritis Miscarriage Hypertension Family History Medical History Relation Name Comments Heart failure Father Hypertension Father Hypertension Maternal Grandmother Hyperte nsion - (Added by TW Conv)/Hypertension - (Added by TW Conv) Asthma Mother Hypertension Mother Hypertension - (Added by TW Conv)/Hypertension - (Added by TW Conv) Hypertension Other 1 Hypertension - (Added by TW Conv) Hypertension Other 2 Hypertension - (Added by TW Conv) Diabetes Paternal Grandmother Diabete s Mellitus - (Added by TW Conv) Relation Name Status Comments Father Maternal Grandmother Alive Mother Alive Other 1 Other 2 Paternal Grandmother Social History Tobacco Use Types Packs/Day Years [...] 08/10/2023 How often do you attend chur or adventist services? Never 08/10/2023 Do you belong to any clubs o r organizations such as yazidism groups, unions, fraternal or athletic groups, or [...] staff should administer the PHQ-9) 0 12/21/2019 [facility] - Occupational Stress [...] place to sleep or slept in a senior living (including now)? 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 on file Not on file Not on file Obstetrics History Para Term AB IAB SAB Ectopic Multiple Livin g Live Births 4 3 3 1 1 0 3 3 Date Outcome GA Total Labor Labor/2nd/3rd Weight Sex Type Anes PTL Coco A1 A5 Name Clin 2012 Term 39w 4d 2.92 kg (6 lb 7 oz) M Epidur al N Livin g Complications: Intolera nce 2018 SAB 2018 Term 39w 2d 0h 02m 0h 02m 3.06 kg (6 lb 11.9 oz) F CS-LT ranv Spinal N Livin g 7 9 JACKS ON,GI RLJAC SERGEYLI VIPUL Spauldingis on, Marisa Hilliard MD Complications:None Delivery Location:[facility] Main C ampus ([facility] L AND D PROCEDURE) 2022 Term 38w 5d 0h 04m 0h 04m 2.91 kg (6 lb 6.7 oz) M C-Sec tion Epidur al N Livin g 8 9 JACKS ON,RODGER YJACQ BILLY taylor, Tyra garcia MD Complications:None Delivery Location:[facility] Main C ampus ([facility] L AND D PROCEDURE) Comments 2019- MarleeModerate adhes bethel disease. We had one pop off of the vacuum so I had to extend the rectus and hysterotomy with bandage scissors. EBL was 700. Baby did fine and cried after delivery. CF carrier/FOB negative - FOB SMA carrier -Got Depo, plans IUD Last Filed Vital Signs Vital Sign Reading [...] 12/15/2024 1:00 PM CDT Plan of Treatment Health Maintenance Due Date Last Done Comments Varicella Vaccines (1 of 2 - 13+ 2-dose series) 2008 Pneumococcal vaccine <65 (1 of 2 - PCV) 2014 Regular Well Visit/Exam 18-64 02/23/2022 02/23/2021 Cervical Cancer Screening 01/29/2024 01/28/2023, Covid-19 Vaccine (3 - 2023-2 5 season) 2024 05/20/2021, 04/22/2021 Depression Screening 09/25/2024 09/25/2023, 12/21/19 20 Influenza Vaccine (#1) 2025 , 08/18/2021, 07/07/2019 DTaP/Tdap/Td Vaccine (9 - Td or Tdap) 07/04/2033 07/04/2023, 07/23/2019, 03/18/2010, Additional history exists HPV Vaccines Completed 11/21/2010, 06/30, 03/18/2010 Hepatitis B Screening Completed 11/19/2022 , [birth year], Additional history exists Hepatitis C Screening Completed 01/23/2023 Procedures Procedure Name Priority Date/Time Associated Diagnosis [...] AM CDT) Nicotine, ur 12(H) <5.0 ng/mL [place] ref [facility] Cotinine, ur 12(H) <5.0 ng/mL [facility] Anabasine ur <2.0 <2.0 ng/mL LINDA [facility] Comment: ADDITIONAL INFORMATION This test was developed and its performance characteristics determined by [facility] in a manner consistent with CLIA requirements. This test has not been cleared or approved by the U.S. Food and Drug Administration. Test Performed by: [facility] [address] [place] [address] Puzzle Assembler: Mian Tobias Ph.D.; CLIA# [id number] Nornicotine, ur <2.0 <2.0 ng/mL LINDA [facility] Urine 01/21/2025 8:14 AM CDT 01/21/2025 9:46 AM CDT us Ilana Gold MD LAB URINE ORDERABLES Final R esult [facility] Department [place] [address] [facility] Lab * Pap with reflex to High Risk HPV (01/28/2023 7:25 AM CDT) Thin prep (Pap test) 01/28/2023 7:25 AM CDT 01/28/2023 10:14 AM CDT Narrative PATHOLOGY [facility] - 01/30/2023 11:50 AM CDT EPIC results best viewed via link to PDF [facility] [place] [address] Note to Patients: This report may contain [...] Gender: F : 1995 (Age: 27) Address: [address] [place] [id number] Hospital #: [id number] Service: DIRECTOR OF MEDICAL EDUCATION Location: Patient Type: [facility] Ancillary Taken: 01/28/2023 Received: 01/28/2023 Accessioned: 01/29/2023 Reported: 01/30/2023 Physician(s): Carl Bain, DUNG FINAL INTERPRETATION SOURCE OF SPECIMEN Liquid based Thin Prep pap with Reflex HPV: STATEMENT OF ADEQUACY - Satisfactory for evaluation - No endocervical/transformation zone sample present in a patient GENERAL CATEGORIZATION: - Negative for squamous intraepithelial lesion or malignancy sloane/01/30/2023 11:50 JACQUELIN Cmaarillo(ASCP) Report Electronically Reviewed and Signed Out By JACQUELIN Camarillo(ASCP) 01/30/2023 11:50:27 Cervicovaginal Cytology (Pap Test) Disclaimer: The Pap test is a screening test used to detect cervical cancer and its precursors; it is not a diagnostic procedure. False negative and false positive results do occur. Pap test results should be interpreted in the context of pertinent clinical information and biopsy results as indicated. [facility] Clinical Laboratory Improvement Amendments (CLIA) mandate that cytologic and histologic results be correlated for laboratory quality facilitator & improvement standards. FOR ALL HIGH-GRADE CASES [...] determined by the Surgical Pathology Department at [facility] as part of an ongoing quality facilitator program and in compliance with federally mandated [...] determined by the Surgical Pathology Department of [facility]. It has not been cleared or approved by the [place]. S. Food and Drug Administration. Carl Bain AV SPECIALIST LAB CYTOLOGY ORDERABLES Mara l Result PATHOLOGY [facility] 3rd Floor [place], [place] [phone] * Hepatitis C antibody (01/23/2023 10:19 AM CDT) Hep C Ab Nonreactive Nonreactive [facility] Comment:Antibodies to HCV no t detected. Does NOT exclude the possibility of recent exposure to HCV. Current interpretive data was last revised on 22 Blood 01/23/2023 10:1 9 AM CDT 01/23/2023 10:53 AM CDT Rosanna Covington NP LAB MICROBIOLOGY - GEN ERAL ORDERABLES Final Result Performing Organization Address [facility] Co de Phone Number [facility] Department [place] [address] from Last 3 Months or Most Recently Relevant to Health Maintenance Insurance [facility] IDPA [facility] CHOICE [facility] [facility] HMO/PPO Address: [address] [address] [place] [address] [employer] [facility] Advance Directives For more information, please contact: [phone] * Full Code (Latest Code Status on [...] n case of cardiopulmonary arrest Care Teams Renewals Specialist Relationship Specialty Start Date End Date Tin Engle MD PCP - General Family Medicine 12/07/19
--- OUTSIDE RECORDS SUMMARY | 2025-04-21 18:30 | XMS_ITS | Clinical Summary ---
Author Organization [facility] Address [facility] [place] [address] Care Team Providers Care Merchant Police Name Role Phone Jenniffer Londono MD Primary Care Provider + [phone] Dario Sharma MD Unavailable Unavailable Allergies Active Allergy Reactions Criticality Noted Date Comments Amoxicillin-Pot Clavulanate Rash Medium 11/17/19 Penicillins Rash Low 08/17/2023 Medications tirzepatide (ZEPBOUND) 2.5 MG/0.5ML injectionIndicat ions:Weight Loss Inject 2.5 mg into the skin once a week. Indications : Weight Loss 2 mL 02/11/2025 Active amLODIPine (NORVASC) 10 MG tablet Take 1 tablet (10 mg total) by mouth daily. 90 tablet 2 02/16/2025 Active carvedilol (COREG) 25 MG tablet Take 1 tablet (25 mg total) by mouth 2 (two) times daily. 180 tablet 2 02/16/2025 Active losartan (COZAAR) 25 MG tablet Take 1 tablet (25 mg total) by mouth daily. 90 tablet 1 02/16/2025 Active Active Problems Problem Noted Date Diagnosed Date Tinnitus of left ear 02/11/2025 Mild sleep apnea 11/03/2024 SOB (shortness of breath) 11/03/2024 Loud snoring 06/24/2024 HTN (hypertension) 09/06/2023 Diastolic dysfunction 09/06/2023 LVH (left ventricular hypertrophy) 09/06/2023 Pre-eclampsia (HHS/HCC) 08/17/2023 Sciatic nerve pain 01/28/2023 Overview (02/10/2025): 01/28- Reports h/o sciatic nerve pain. Has previously been referred to PT. Recently started to act up. Encouraged exercises and walking. Will CTM. Pt to consider PT but at this time declines referral. Encounters Date Type Department Care Team Description 04/07/2025 Scan HEALTH INFO SRVCS Scanned, [facility] 03/10/2025 Results Follow-Up [facility] [address], [address] [place] [address] [phone] Jenniffer Londono MD CBC W/DIFF AUTOMATED, COMPREHENSIVE METABOLIC PANEL, LIPID PANEL, Additional followed-up results: 5 03/09/2025 Scan HEALTH INFO SRVCS Scanned, [facility] 03/09/2025 Orders Only [facility] [address], [address] [place] [address] [phone] Jenniffer Londono MD 02/11/2025 3:00 PM CDT Office Visit [facility] [address] [facility], [address] [place] [address] [phone] Jenniffer Londono MD Follow Up (Annual follow up. Left ear muffled, and would like to discuss weight loss medication. (Print lab) ) 02/11/2025 Travel 02/10/2025 2:00 PM CDT [facility], [address] [address] Ruma Up NP-C Hypertension; Cardiomyopathy; Shortness Of Breath 02/10/2025 Travel from Last 3 Months Immunizations Immunization Administration Dates Next Due Dtap (Generic) 06/07/2000 Dtp (Generic) 07/27/1996,1995,1995 ,1995 HPV4 (Gardasil) 11/21/2010,07/15/2010,03/18/2010 Hepatitis A (Generic) 03/14/2002,07/19/2001 Hepatitis B Pediatric 1995,1995,1995 Hepatitis B(Engerix B Adult) 11/19/2022 Hib (Generic) 07/27/1996,1995,1995 ,1995 Influenza Adult (Generic) 07/04/2023,08/18/2021, 07/07/2019 MMR (MMRII) 09/27/2019,06/07/2000,07/27/1996 Meningococcal (Menactra) 11/12/2013,03/18/2010 Polio Opv (Generic) 06/07/2000,1995,1994,1995 Tdap (Generic) 07/04/2023,07/23/2019,03/18/2010 Family History Medical History Relation Comments Hypertension Father Asthma Mother Hypertension Mother Breast Cancer Neg Hx Colon Cancer Neg Hx Relation Status Comments Father Alive Mother Alive Social History Tobacco Use Types Packs/Day Years Used Date Smoking Tobacco: Never Passive Smoke Exposure: Never Smokeless Tobacco: Never Tobacco Cessation:Counseling Given: No Comments:Patient reports she used use e- ciggs and quit in 2019. Also used to smoke cigarillos Alcohol Use Standard Drinks/Week Comments Not Currently 0 (1 standard drink = 0.6 oz pur e alcohol) occasional [employer] Utilities Answer Date Recorded In the past 12 months has th e [employer], gas, oil, or water Conductor threatened to shut off services in your home? No 08/19/2023 Humiliation, Afraid, Rape, and Kick questionnair e Answer Date Recorded Within the last year, have y ou been afraid of your partner or ex-partner? No 08/19/2023 Within the last year, have y ou been humiliated or emotionally abused in other ways by your partner or ex-partner? No Within the last year, have y ou been kicked, hit, slapped, or otherwise physically hurt by your partner or ex-partner? No 08/19/2023 Within the last year, have y ou been raped or forced to have any kind of sexual activity by your partner or ex-partner? No 08/19/2023 Social Connection and Isolat ion Panel [NHANES] Answer Date Recorded In a typical week, how many times do you talk on the phone with family, friends, or neighbors? More than three times a week 08/19/2023 How often do you get togethe r with friends or relatives? Once a week 08/19/2023 How often do you attend chur ch or protestant services? Patient declined 08/19/2023 Do you belong to any clubs o r organizations such as yarsani groups, unions, fraternal or athletic groups, or school groups? Patient declined 08/19/2023 How often do you attend meet ings of the clubs or organizations you belong to? Patient declined 08/19/2023 Are you , , di vorced, , never , or living with a partner? Living with partner 08/19/2023 AUDIT-C Answer Date Recorded Q1: How often do you have a drink containing alc ohol? Monthly or less 08/19/2023 Q2: How many drinks containi ng alcohol do you have on a typical day when you are drinking? 3 or 4 08/19/2023 Q3: How often do you have si x or more drinks on one occasion? Never 08/19/2023 Overall Financial Resource Strain (CARDIA) Answe r Date Recorded How hard is it for you to pa y for the very basics like food, housing, medical care, and heating? Not hard at all 08/19/2023 PHQ-2 Answer Date Recorded Patient Health Questionnaire-2 Score 0 02/11/2025 [facility]ational Stress Questionnaire Answer Date Recorded Do you feel stress - tense, restless, nervous, or anxious, or unable to sleep at night because your mind is troubled all the time - these days? Only a little 08/19/2023 Exercise Vital Sign Answer Date Recorde d On average, how many days pe r week do you engage in moderate to strenuous exercise (like a brisk walk)? 5 days 08/19/2023 On average, how many minutes do you engage in exercise at this level? 10 min 08/19/2023 Hunger Vital Sign Answer Date Recorded Within the past 12 months, y ou worried that your food would run out before you got the money to buy more. Never true 08/19/20 23 Within the past 12 months, t he food you bought just didn't last and you didn't have money to get more. Never true 08/19/2023 PRAPARE - Transportation Answer Date Re corded In the past 12 months, has l ack of transportation kept you from medical appointments or from getting medications? No 08/01 In the past 12 months, has l ack of transportation kept you from meetings, work, or from getting things needed for daily living? No 08/19/2023 Housing Stability Vital Sign Answer Mendez e Recorded In the last 12 months, was t here a time when you were not able to pay the mortgage or rent on time? No 08/19/2023 In the last 12 months, how many places have you lived? 1 08/19/2023 In the last 12 months, was t here a time when you did not have a steady place to sleep or slept in a halfway (including now)? 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 Gender Identity Female 02/11/2025 3:24 PM CDT Sexual Orientation Straight 02/11/2025 3: 24 PM CDT Last Filed Vital Signs Vital Sign Reading Time Taken Comments Blood Pressure 148/96 02/11/2025 3:29 PM CDT Pulse 80 02/11/2025 3:29 PM CDT Temperature 36.6 C (97.8 F) 02/11/2025 3:29 PM CDT Respiratory Rate 14 02/11/2025 3:29 PM CDT Oxygen Saturation 97% 02/11/2025 3:29 PM CDT Inhaled Oxygen Concentration - - Weight 96.2 kg (212 lb) 02/11/2025 3:29 PM CDT Height 157.5 cm (5' 2) 02/11/2025 3:29 PM CDT Body Mass Index 38.78 02/11/2025 3:29 PM CDT Plan of Treatment Upcoming Encounters Date Type Department Care Team (Late st Contact Info) Description 04/22/2025 11:20 AM CDT Office Visit [facility] - [address] [place] [address] Anthony Courtney MD 3rd [facility] [address] [place] [address] 08/17/2025 2:30 PM SOCIOLOGY FACULTY MEMBER [facility], [address] [place] [address] David Rosas MD [facility]. [address] [place], [place] [address] Health Maintenance Due Date Last Done Comments Hepatitis C 2013 Pneumococcal Vaccine: Pediatrics (0 to 5 Years) and At-Risk Patients (6 to 49 Years) (1 of 2 - PCV) 2014 COVID-19 Vaccine ( season) 2024 05/20/2021, 04/22/2021 Cervical Cancer Screening Pap with HPV Testing (Age 30 to 64) Every 5 Years 2025 07/17/2023 Annual Physical 02/11/2026 02/11/2025, 10/09/2023 Cervical Cancer Screening Pap Smear (Age 30 to 64) Every 3 Years 07/17/2026 07/17/2023, 07/17/2023, 01/28/2023 Cervical Cancer Screening with HPV 07/17/2026 DTaP, Tdap and Td Vaccines (9 - Td or Tdap) 07/04/2033 07/04/2023, 07/23/2019, 03/18/2010, Additional history exists HPV Vaccines Completed 11/21/2010, 06/30, 03/18/2010 Meningococcal Vaccine Completed 11/12/2013, 010 Hepatitis B Vaccines Completed 11/19/2022, 1995, 1995, Additional history exists PHQ-2 (Physician [place]) Completed 02/11/2025 Meningococcal B Vaccine Aged Out No l onger eligible based on patient's age to complete this topic RSV Immunizations Under 20 Months Aged Out No longer eligible based on patient's age to complete this topic Procedures Procedure Name Priority Date/Time Associated Diagnosis Comments FERRITIN Routine 03/16/2025 1:14 PM CDT Thrombocytosis IRON SAT PANEL (IRON,IBC,%SAT) Routine 03/16/2025 1:14 PM CDT Thrombocytosis TEST AUTHORIZATION 03/09/2025 10 :44 AM CDT FERRITIN 03/09/2025 10:44 AM CDT IRON SAT PANEL (IRON,IBC,%SAT) 03/09/2025 10:44 AM CDT T4 AND TSH 03/09/2025 10:44 AM CDT HEMOGLOBIN, GLYCOSYLATED 03/09/2025 10:44 AM CDT ALBUMIN URINE RANDOM W/CREATININE 03/09/2025 10:44 AM CDT LIPID PANEL 03/09/2025 10:44 AM CDT COMPREHENSIVE METABOLIC PANEL 03/09/2025 10:44 AM CDT CBC W/DIFF AUTOMATED 03/09/2025 10:44 AM CDT from Last 3 Months Results * IRON SAT PANEL (IRON,IBC,%SAT) (03/16/2025 1:14 PM CDT) Only the most recent of2 resultswithin the time period is included. IRON BINDING CAPACITY 372 250 - 450 ug/dL [facility] UNBOUND IRON BINDING CAPACITY 303 131 - 425 ug/dL [facility] 1 IRON 69 27 - 159 ug/dL [facility] 1 IRON SATURATION 19 15 - 55 % [facility] 1 03/16/2025 1:14 PM CDT 03/16/2025 Narrative [facility] - 03/17/2025 2:10 PM CDT Performed at: - [facility] [id number] Option Trader: Leandro Singh PhD, Phone: [phone] us Jenniffer Londono MD LABORATORY Final Result Performing Organization Address City/[facility] Co de Phone Number [facility] [address] [place] [address] [facility] * FERRITIN (03/16/2025 1:14 PM CDT) Only the most recent of2 resultswithin the time period is included. FERRITIN 53 15 - 150 ng/mL [facility] 1 03/16/2025 1:14 PM CDT 03/16/2025 Narrative [facility] - 03/17/2025 2:10 PM CDT Performed at: - [facility] [id number] Option Trader: Leandro Singh PhD, Phone: [phone] us Jenniffer Londono MD LABORATORY Final Result Performing Organization Address [facility] Co de Phone Number [facility] [address] [place] [phone] [facility] * TEST AUTHORIZATION (03/09/2025 10:44 AM CDT) REPORT STATUS COMMENT [facility] 1 Comment: Written Authorization Written Authorization No Written Authorization Received. 03/09/2025 10:4 4 AM CDT 03/09/2025 Narrative [facility] - 04/02/2025 11:36 AM CDT Performed at: [facility] [id number] Option Trader: Leandro Singh PhD, Phone: [phone] us Jenniffer Londono MD LABORATORY Final Result Performing Organization Address City/[facility] Co de Phone Number [facility] [address] [place] [address] [facility] * (ABNORMAL) HEMOGLOBIN, GLYCOSYLATED (03/09/2025 10:44 AM CDT) [facility] HGB A1C 5.8(H) 4.8 - 5.6 % [facility] 1 Comment: Prediabetes: 5.7 - 6.4 Diabetes: >6.4 Glycemic control for adults with diabetes: <7.0 03/09/2025 10:4 4 AM CDT 03/09/2025 Narrative [facility] - 03/10/2025 11:36 AM CDT Performed at: [address] [place] [id number] Option Trader: Leandro Singh PhD, Phone: [phone] Jenniffer Londono MD LABORATORY Final Result Performing Organization Address [facility] de Phone Number [facility] [address] [place] [address] [facility] * T4 AND TSH (03/09/2025 10:44 AM CDT) [facility] TSH 1.540 0.450 - 4.50 uIU/mL [facility] 1 03/09/2025 10:4 4 AM CDT 03/09/2025 Narrative [facility] - 03/10/2025 11:36 AM CDT Performed at: [address] [place] [id number] Option Trader: Leandro Singh PhD, Phone: [phone] Jenniffer Londono MD LABORATORY Final Result Performing Organization Address City/[facility] Co de Phone Number [facility] [address] [place] [phone] [facility] * ALBUMIN URINE RANDOM W/CREATININE (03/09/2025 10:44 AM CDT) [facility] CREATININE (URINE) 178.5 Not Estab. mg/dL [facility] 1 ALBUMIN (U) 9.0 Not Estab. ug/mL [facility] 1 ALBUMIN/CREAT RATIO 5 0 - 29 mg/g creat [facility] 1 Comment: Normal: 0 - 29 Moderately increased: 30 - 300 Severely increased: >300 03/09/2025 10:4 4 AM CDT 03/09/2025 Narrative [facility] - 03/10/2025 11:36 AM CDT Performed at: 01 - [address] [id number] Option Trader: Leandro Singh PhD, Phone: [phone] us Jenniffer Londono MD URINE ORDERABLES Final Resul t [facility] [address] [place] [address] [facility] * COMPREHENSIVE METABOLIC PANEL (03/09/2025 10:44 AM CDT) GLUCOSE 97 70 - 99 mg/dL [facility] BUN 6 6 - 20 mg/dL [facility] 1 CREATININE S/P/B 0.66 0.57 - 1.00 mg/dL [facility] 1 GFR ESTIMATE 122 >59 mL/min/1.7 3 [facility] 1 BUN CREATININE RATIO 9 9 - 23 [facility] 1 SODIUM S/P/B 140 134 - 144 mmol/L [facility] 1 POTASSIUM S/P/B 4.7 3.5 - 5.2 mmol/L [facility] 1 CHLORIDE S/P/B 104 96 - 106 mmol/L [facility] 1 CO2 21 20 - 29 mmol/L [facility] 1 CALCIUM S/P/B 9.9 8.7 - 10.2 mg/dL [facility] 1 TOTAL PROTEIN S/P/B 7.8 6.0 - 8.5 g/dL [facility] 1 ALBUMIN S/P/B 4.8 4.0 - 5.0 g/dL [facility] 1 GLOBULIN 3.0 1.5 - 4.5 g/dL [facility] 1 BILIRUBIN TOTAL S/P/B 0.3 0.0 - 1.2 mg/dL [facility] 1 ALKALINE PHOSPHATASE S/P/B 98 44 - 121 IU/L [facility] 1 AST 17 0 - 40 IU/L [facility] 1 ALT 20 0 - 32 IU/L [facility] 1 03/09/2025 10:4 4 AM CDT 03/09/2025 Narrative [facility] - 03/10/2025 11:36 AM CDT Performed at: [address] [id number] Option Trader: Leandro Singh PhD, Phone: [phone] Jenniffer Londono MD LABORATORY Final Result Performing Organization Address [facility] de Phone Number [facility] [address] [place] [address] [facility] * (ABNORMAL) LIPID PANEL (03/09/2025 10:44 AM CDT) CHOLESTEROL 143 100 - 199 mg/dL [facility] TRIGLYCERIDES 81 0 - 149 mg/dL [facility] HDL 35(L) >39 mg/dL [facility] 1 VLDL CALCULATION 16 5 - 40 mg/dL [facility] 1 LDL (CALCULATED) 92 0 - 99 mg/dL [facility] 1 03/09/2025 10:4 4 AM CDT 03/09/2025 Narrative [facility] - 03/10/2025 11:36 AM CDT Performed at: [address] [id number] Option Trader: Leandro Singh PhD, Phone: [phone] Jenniffer Londono MD LABORATORY Final Result Performing Organization Address [facility] de Phone Number [facility] [address] [place] [address] [facility] * (ABNORMAL) CBC W/DIFF AUTOMATED (03/09/2025 10:44 AM CDT) WBC 8.8 3.4 - 10.8 x10E3/uL [facility] RBC 4.88 3.77 - 5.28 x10E6/uL [facility] 1 HGB 13.5 11.1 - 15.9 g/dL [facility] 1 HCT 43.1 34.0 - 46.6 % [facility] 1 MCV 88 79 - 97 fL [facility] 1 MCH 27.7 26.6 - 33.0 pg [facility] 1 MCHC 31.3(L) 31.5 - 35.7 g/dL [facility] 1 RDW 13.4 11.7 - 15.4 % [facility] 1 PLATELET COUNT 532(H) 150 - 450 x10E3/uL [facility] 1 NEUTROPHILS % 60 Not Estab. % [facility] LYMPHOCYTES % 32 Not Estab. % [facility] 1 MONOCYTES % 5 Not Estab. % [facility] 1 EOSINOPHILS % 2 Not Estab. % [facility] 1 BASOPHILS % 1 Not Estab. % [facility] 1 ABS. NEUTROPHILS 5.2 1.4 - 7.0 x10E3/uL [facility] 1 ABS. LYMPHOCYTES 2.9 0.7 - 3.1 x10E3/uL [facility] 1 MONOCYTES 0.5 0.1 - 0.9 x10E3/uL [facility] 1 ABS. EOSINOPHILS 0.2 0.0 - 0.4 x10E3/uL [facility] 1 ABS. BASOPHILS 0.1 0.0 - 0.2 x10E3/uL [facility] 1 ABS. IMMATURE GRANULOCYTES 0 Not Estab. % [facility] 1 ABS. IMMATURE GRANULOCYTES 0.0 0.0 - 0.1 x10E3/uL [facility] 1 03/09/2025 10:4 4 AM CDT 03/09/2025 Narrative [facility] - 03/10/2025 11:36 AM CDT Performed at: 01 - [facility] [address] [id number] Option Trader: Leandro Singh PhD, Phone: [phone] Jenniffer Londono MD LABORATORY Final Result Performing Organization Address City/State/[facility] Co de Phone Number [facility] [address] [place] [address] [facility] 1 from Last 3 Months Insurance [employer] Advance Directives * Full Code (Latest Code Status on File) Date Activated Date Inactivated Comments 08/19/2023 8:59 PM 08/21/2023 4:01 PM * Full Code Date Activated Date Inactivated Comments 08/17/2023 1:09 PM 08/19/2023 8:56 PM Care Teams Merchant Police Relationship Specialty Start Date End Date Jenniffer Londono MD [address] [place] [address] PCP - General FAMILY PRACTICE 10/09/23 Dario Sharma MD [address] [place] [address] Consulting Physician INTERVENTIONAL CARDIOLOGY 10/09/23
--- OUTSIDE RECORDS SUMMARY | 2025-04-21 18:30 | XMS_ITS | Clinical Summary ---
Author Organization [facility] Address [address] [place] [address] Care Team Providers Care Plate Former Name Role Phone Unavailable Primary Care Provider Unavailabl e Source Comments [facility],non-owned Affiliates and Associated Physician Practices is amultiple site organization consisting of ambulatory clinics and hospital sitesin [place], [place], [place] and [place]. This disclosure is being madepursuant to the Care Everywhere program and may not contain all information available regarding this patient. Last updated 18.[facility] Onzo Allergies Active Allergy Reactions Criticality Noted Date Comments Amoxicillin-Pot Clavulanate Rash Medium 11/17/19 25 Penicillins Urticaria,Rash Medium 11/30/2017 Hives Medications * Be aware that medications may not be up to date on this document. Alwaysverify current medications with the patient. amLODIPine (Norvasc) 10 MG tablet Take 1 (one) tablet by mouth once daily 09/14/2024 Active captopril (Capoten) 50 MG tablet Take 1 (one) tablet by mouth 2 times daily 05/19/2024 Active carvedilol (Coreg) 25 MG tablet Take 1 (one) tablet by mouth 2 times daily 09/28/2024 Active furosemide (Lasix) 40 MG tablet Take 1 (one) tablet by mouth once daily Active losartan (Cozaar) 25 MG tablet Take 1 (one) tablet by mouth once daily 11/03/2024 Active baclofen (Lioresal) 10 MG tablet 10 MG ORALLY THREE TIMES A DAY NEEDED FOR MUSCLE PAIN 12/31/2023 Active Active Problems Problem Noted Date Diagnosed Date Mild sleep apnea 11/03/2024 SOB (shortness of breath) 11/03/2024 Loud snoring 06/24/2024 HTN (hypertension) 09/06/2023 Diastolic dysfunction 09/06/2023 LVH (left ventricular hypertrophy) 09/06/2023 Sciatic nerve pain 01/28/2023 Overview (11/17/2024): 01/28- Reports h/o sciatic nerve pain. Has previously been referred to PT. Recently started to act up. Encouraged exercises and walking. Will CTM. Pt to consider PT but at this time declines referral. 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 Legal Sex Female 5:36 AM EQUIPMENT DRIVER Gender Identity Not on file Sexual Orientation Straight 10/05/2021 4: 12 AM EQUIPMENT DRIVER Plan of Treatment Health Maintenance Due Date Last Done Comments HIV SCREENING 2010 HEPATITIS C SCREENING 03/29/2013 DTAP/TDAP/TD VACCINES (1 - Tdap) 2014 HEPATITIS B VACCINE (1 of 3 - 19+ 3-dose series) 2014 PAP SMEAR 2016 HPV VACCINE (1 - 3-dose SCDM series) 2022 COVID-19 VACCINE (3 - 2023-2 5 season) 2024 05/20/2021, 04/22/2021 INFLUENZA VACCINE (#1) 2025 , 08/18/2021, 07/07/2019 ZOSTER VACCINE (1 of 2) 2045 DEPRESSION SCREENING Completed 11/17/2024 HIB VACCINE Aged Out No longer eligi ble based on patient's age to complete this topic MENINGOCOCCAL (Group B) VACCINE SHARED DECISION-MAKING Aged Out No longer eligible based on patient's age to complete this topic MENINGOCOCCAL GROUPS A/C/Y/W VACCINE Aged Out No longer eligible b ased on patient's age to complete this topic PNEUMOCOCCAL VACCINE Aged Out No long er eligible based on patient's age to complete this topic
--- OUTSIDE RECORDS SUMMARY | 2025-04-21 18:30 | XMS_ITS | Patient Health Record ---
Author Organization [facility] Address [address] [place], [place] [address] Support Name Relationship Address Phone ALFRED CHINO Emergency Contact Unknown BELL MCCANN Guarantor Unknown Reason For Referral No Information Medications Medication SIG (Take, Route, Frequency, Duration) Notes Start Date End Date Status pantoprazole 20 MG Delayed Release Oral Tablet ORAL pantoprazole 20 MG Delayed Release Oral TabletOriginal Medicationpantoprazole 20 MG Delayed Release Oral Tablet *Reorder from [employer] for eRx and Interaction Alerts* 11/07/2013 Active ranitidine 150 MG Oral Capsule ORAL ranitidine 150 MG Oral CapsuleOriginal Medicationranitidine 150 MG Oral Capsule *Reorder from [employer] for eRx and Interaction Alerts* 11/07/2013 Active Plan Of Treatment No Information Insurance Providers Payer Name Payer Address Payer Phone Subscriber Number Group Number Insured Name Patient Relationship to Insured Coverage Start Date Coverage End Date [facility] [address] [address] [place] [address] [id number] ALFRED CHINO [facility] Child - Insured has Financial Responsibility
--- OUTSIDE RECORDS SUMMARY | 2025-04-21 18:30 | XMS_ITS | Encounter Summary ---
Author Organization [facility] Address [facility] [place] [address] Care Team Providers Care Child Care Team Lead Name Role Phone Jenniffer Londono MD Primary Care Provider + [phone] Dario Sharma MD Unavailable Unavailable Encounter Details Date Type Department Care Team (Late st Contact Info) Description 07/07/2024 [employer] Message Enc [place] [facility] THREE [facility], [facility] [address] [place], [place] [phone] Ruma Up, RN TELEHEALTH-C Three [facility] [address] [place], [place] [phone] Headaches Social History Tobacco Use Types Packs/Day Years Used Date Smoking Tobacco: Never Passive Smoke Exposure: Never Smokeless Tobacco: Never Comments:Patient reports she used use e- ciggs and quit in 2019. Also used to smoke cigarillos Alcohol Use Standard Drinks/Week Comments Never 0 (1 standard drink = 0.6 oz pur e alcohol) [facility] Utilities Answer Date Recorded In the past 12 months has e electric, gas, oil, or water company threatened to shut off services in your [...] week 08/19/2023 How often do you attend [facility] or scientologist services? Patient declined 08/19/2023 Do you belong to any clubs o r organizations such as christianity groups, unions, fraternal or athletic groups, or [...] Date Recorded Patient Health Questionnaire-2 Score 0 10/09/2023 [facility] Occupat ional Health - Occupational [...] place to sleep or slept in a jail (including now)? No 08/19/2023 Comments No Sex and Gender Information Value Date Recorded Sex Assigned at Female 02/11/2025 3:24 PM CDT Legal Sex Female 8:33 AM HOG DRIVER Gender Identity Female 02/11/2025 3:24 PM CDT Sexual Orientation Straight 02/11/2025 3: 24 PM CDT documented as of this encounter Functional Status * Are you deaf or do you have serious difficulty hearing Answer Date of Assessment Author Status No 08/20/2023 12:00 AM Seema Scott, DUNG Active * Are you blind or do you have serious difficulty seeing, even when wearing glasses? Answer Date of Assessment Author Status No 08/20/2023 12:00 AM Seema Scott, RN Active * Do you have serious difficulty walking or climbing stairs? Answer Date of Assessment Author Status No 08/20/2023 12:00 AM Seema Scott RN Active * Do you have difficulty dressing or bathing? Answer Date of Assessment Author Status No 08/20/2023 12:00 AM HOG DRIVER Seema Anderson, RN Active * Because of a physical, mental, or emotional condition, do you have difficulty doing errands alone such as visiting a doctor's office or shopping? Answer Date of Assessment Author Status No 08/20/2023 12:00 AM HOG DRIVER Seema Anderson RN Active documented as of this encounter Mental Status * Because of a physical, mental, or emotional condition, do you have serious difficulty concentrating, remembering, or making decisions? Answer Entry Date Author Status No 08/20/2023 12:00 AM HOG DRIVER Seema Anderson, RN Active documented in this encounter Plan of Treatment Upcoming Encounters Date Type Department Care Team (Late st Contact Info) Description 04/22/2025 11:20 AM CDT Office Visit [facility] Medical Group Multispecialty Care - [address] [place] [address] Anthoyn Courtney MD [address] [place] [address] [address] [place] [address] 08/17/2025 2:30 PM HOG DRIVER Office Visit [facility], [address] [place], [place] [phone] David Rosas MD [facility]. [facility] [address] [place], [place] [phone] documented as of this encounter Visit Diagnoses Not on filedocumented in this encounter Additional Health Concerns Infection Onset Date Last Indicated Resolved Time COVID-19 Rule Out 08/28/2024 08/28/2024 08/28/2024 1:23 PM HOG DRIVER Assessment Noted Time PHQ-9 Depression Total Score: 0 10/09/19 9:28 AM HOG DRIVER documented as of this encounter Care Teams Child Care Team Lead Relationship Specialty Start Date End Date Jenniffer Londono MD [address] [facility] [address] [place] [phone] PCP - General FAMILY PRACTICE 10/09/23 Dario Sharma MD [address] [address] Consulting Physician INTERVENTIONAL CARDIOLOGY 10/09/23 documented as of this encounter
--- OUTSIDE RECORDS SUMMARY | 2025-04-21 18:31 | XMS_ITS | Encounter Summary ---
Author Organization [facility] Address [address] [place] [address] Care Team Providers Care Book Coverer Name Role Phone Jenniffer Londono MD Primary Care Provider + [phone] Dario Sharma MD Unavailable Unavailable Reason for Referral * Consultation (Routine) - Denied Specialty Diagnoses / Procedures Referred By Ahmet lopes Referred To Contact SLEEP & RESPIRATORY CARE Diagnoses Mild sleep apnea Procedures OFFICE/OUTPATIENT NEW LOW MDM 30-44 MINUTES OFFICE/OUTPT VISIT,NEW,LEVL IV OFFICE/OUTPT VISIT,NEW,LEVL V OFFICE/OUTPT VISIT,EST,LEVL III OFFICE/OUTPT VISIT,EST,LEVL IV OFFICE/OUTPT VISIT,EST,LEVL V David Rosas MD [facility]. [address] [address] Phone: tel: fax: Referral ID Status Reason Start Date Expiration Date V isits Requested Visits Authorized [id number] Denied Specialty Services 07/30/2024 07/30/2025 1 0 Reason for Visit * Reason Onset Date Comments Referral 07/29/2024 Encounter Details Date Type Department Care Team (Late st Contact Info) Description 07/29/2024 MyChart Message Enc [place] [facility] [facility], [place] [address] [place] [address] David Rosas MD [facility]. [address] [address] Referral for sleep apnea Social History Tobacco Use Types Packs/Day Years Used Date Smoking Tobacco: Never Passive Smoke Exposure: Never Smokeless Tobacco: Never Comments:Patient reports she used use e- ciggs and quit in 2019. Also used to smoke cigarillos Alcohol Use Standard Drinks/Week Comments Never 0 (1 standard drink = 0.6 oz pur e alcohol) [facility] Utilities Answer Date Recorded In the past 12 months has e [employer], gas, oil, or water [employer] threatened to shut off services in your [...] often do you attend chur ch or muslim services? Patient declined 08/19/2023 Do you belong to any clubs o r organizations such as taoist groups, unions, fraternal or athletic groups, or [...] Recorded Patient Health Questionnaire-2 Score 0 10/09/2023 [facility] Occupat ional Health - Occupational [...] place to sleep or slept in a correction (including now)? No 08/19/2023 Comments No Sex and Gender Information Value Date Recorded Sex Assigned at Female 02/11/2025 3:24 PM CDT Legal Sex Female 8:33 AM INSTANTIZER OPERATOR Gender Identity Female 02/11/2025 3:24 PM CDT Sexual Orientation Straight 02/11/2025 3: 24 PM CDT documented as of this encounter Functional Status * Are you deaf or do you have serious difficulty hearing Answer Date of Assessment Author Status No 08/20/2023 12:00 AM Seema Scott RN Active * Are you blind or do you have serious difficulty seeing, even when wearing glasses? Answer Date of Assessment Author Status No 08/20/2023 12:00 AM Seema Scott RN Active * Do you have serious difficulty walking or climbing stairs? Answer Date of Assessment Author Status No 08/20/2023 12:00 AM Seema Scott RN Active * Do you have difficulty dressing or bathing? Answer Date of Assessment Author Status No 08/20/2023 12:00 AM Seema Scott RN Active * Because of a physical, mental, or emotional condition, do you have difficulty doing errands alone such as visiting a doctor's office or shopping? Answer Date of Assessment Author Status No 08/20/2023 12:00 AM Seema Scott RN Active documented as of this encounter Mental Status * Because of a physical, mental, or emotional condition, do you have serious difficulty concentrating, remembering, or making decisions? Answer Entry Date Author Status No 08/20/2023 12:00 AM Seema Scott RN Active documented in this encounter Progress Notes * Rosanna Dubon Product Demonstrator - 07/30/2024 10:13 AM CDT New referral sent to [facility] Pulmonary documented in this encounter Plan of Treatment Upcoming Encounters Date Type Department Care Team (Late st Contact Info) Description 04/22/2025 11:20 AM CDT Office Visit [facility] Medical Group Multispecialty Care - [address] [place] [address] Anthony Courtney MD 3rd [facility] [address] [place] [address] 08/17/2025 2:30 PM INSTANTIZER OPERATOR Office Visit [facility] THREE [facility], [address] [place] [address] David Rosas MD Three [facility]. [address] [place] [address] Scheduled Referrals Name Type Priority Associated Diagnoses Orde r Schedule Ambulatory referral to Pulmonology/Sleep and Respiratory Care Referral Routine Mild sleep apnea Ordered: 07/30/2024 documented as of this encounter Visit Diagnoses Diagnosis Mild sleep apnea- Primary Unspecified sleep apnea documented in this encounter Additional Health Concerns Infection Onset Date Last Indicated Resolved Time COVID-19 Rule Out 08/28/2024 08/28/2024 08/28/2024 1:23 PM INSTANTIZER OPERATOR Assessment Noted Time PHQ-9 Depression Total Score: 0 10/09/19 24 9:28 AM INSTANTIZER OPERATOR documented as of this encounter Care Teams Book Coverer Relationship Specialty Start Date End Date Jenniffer Londono MD [address] [facility] [address] [facility] [address] [place] [phone] PCP - General FAMILY PRACTICE 10/09/23 Dario Sharma MD [address] [facility] [address] [place] [address] Consulting Physician INTERVENTIONAL CARDIOLOGY 10/09/23 documented as of this encounter
--- OUTSIDE RECORDS SUMMARY | 2025-04-21 18:31 | XMS_ITS | Encounter Summary ---
Author Organization [facility] Address [facility] [place] [address] Care Team Providers Care Score Caller Name Role Phone Jenniffer Londono MD Primary Care Provider + [phone] Dario Sharma MD Unavailable Unavailable Encounter Details Date Type Department Care Team (Late st Contact Info) Description 08/13/2024 [employer] Message Enc [place] [facility] THREE [facility], [facility] [address] [place], [place] [phone] Ruma Up, JIG BUILDER HELPER-C Three [facility]. [facility] [address] [place], [place] [id number] [employer] Social History Tobacco Use Types Packs/Day Years Used Date Smoking Tobacco: Never Passive Smoke Exposure: Never Smokeless Tobacco: Never Comments:Patient reports she used use e- ciggs and quit in 2019. Also used to smoke cigarillos Alcohol Use Standard Drinks/Week Comments Never 0 (1 standard drink = 0.6 oz pur e alcohol) [facility] Utilities Answer Date Recorded In the [...] 08/19/2023 How often do you attend chur or holiness services? Patient declined 08/19/2023 Do you belong to any clubs o r organizations such as adventist groups, unions, fraternal or athletic groups, or [...] Recorded Patient Health Questionnaire-2 Score 0 10/09/2023 [facility] of Occupat ional Health - Occupational Stress [...] place to sleep or slept in a [place] [facility] [place] facility (including now)? No 08/19/2023 Comments No Sex and Gender Information Value Date Recorded Sex Assigned at Female 02/11/2025 3:24 PM CDT Legal Sex Female 8:33 AM SHEET METAL WELDER Gender Identity Female 02/11/2025 3:24 PM CDT [...] Assessment Author Status No 08/20/2023 12:00 AM SHEET METAL WELDER Seema Anderson, RN Active * Because of a physical, mental, or emotional condition, do you have difficulty doing errands alone such as visiting a doctor's office or shopping? Answer Date of Assessment Author Status No 08/20/2023 12:00 AM SHEET METAL WELDER Seema Anderson RN Active documented as of this encounter Mental Status * Because of a physical, mental, or emotional condition, do you have serious difficulty concentrating, remembering, or making decisions? Answer Entry Date Author Status No 08/20/2023 12:00 AM SHEET METAL WELDER Seema Anderson RN Active documented in this encounter Plan of Treatment Upcoming Encounters Date Type Department Care Team (Late st Contact Info) Description 04/22/2025 11:20 AM CDT Office Visit [facility] Medical Group Multispecialty Care - [address] [place] [address] Anthony Courtney MD [address] [place] [address] [address] [place] [address] 08/17/2025 2:30 PM SHEET METAL WELDER Office Visit [facility], [address] [place], [place] [phone] David Rosas MD [facility]. [facility] [address] [place], [place] [address] documented as of this encounter Visit Diagnoses Not on filedocumented in this encounter Additional Health Concerns Infection Onset Date Last Indicated Resolved Time COVID-19 Rule Out 08/28/2024 08/28/2024 08/28/2024 1:23 PM SHEET METAL WELDER Assessment Noted Time PHQ-9 Depression Total Score: 0 10/09/19 9:28 AM SHEET METAL WELDER documented as of this encounter Care Teams Score Caller Relationship Specialty Start Date End Date Jenniffer Londono MD [address] [facility] [address] [place] [phone] PCP - General FAMILY PRACTICE 10/09/23 Dario Sharma MD [address] [facility] [address] [place] [address] Consulting Physician INTERVENTIONAL CARDIOLOGY 10/09/23 documented as of this encounter
--- OUTSIDE RECORDS SUMMARY | 2025-04-21 18:31 | XMS_ITS | Encounter Summary ---
Author Organization [facility] Address [facility] [place] [address] Care Team Providers Care Criminal Judge Name Role Phone Jenniffer Londono MD Primary Care Provider + [phone] Dario Sharma MD Unavailable Unavailable Encounter Details Date Type Department Care Team (Late st Contact Info) Description 11/01/2023 [employer] Message Enc [facility]'[address] [address] Dario Sharma MD Jacqueline jackson Social History Tobacco Use Types Packs/Day Years Used Date Smoking Tobacco: Never Passive Smoke Exposure: Never Smokeless Tobacco: Never Comments:Patient reports she used use e- ciggs and quit in 2019. Also used to smoke cigarillos Alcohol Use Standard Drinks/Week Comments Never 0 (1 standard drink = 0.6 oz pur e alcohol) [facility] Utilities Answer Date Recorded In the past 12 months has [employer], gas, oil, or water [employer] threatened to shut off services in your [...] How often do you attend chur or confucianism services? Patient declined 08/19/2023 Do you belong to any clubs o r organizations such as anabaptist groups, unions, fraternal or athletic groups, or [...] Recorded Patient Health Questionnaire-2 Score 0 10/09/2023 [facility] of Occupat ional Health - [...] place to sleep or slept in a intermediate (including now)? No 08/19/2023 Comments No Sex and Gender Information Value Date Recorded Sex Assigned at Female 02/11/2025 3:24 PM CDT Legal Sex Female 8:33 AM VICE PRESIDENT OF INSTRUCTION Gender Identity Female 02/11/2025 3:24 PM CDT [...] Scott, RN Active * Do you have difficulty dressing or bathing? Answer Date of Assessment Author Status No 08/20/2023 12:00 AM Seema Scott, RN Active * Because of a physical, mental, or emotional condition, do you have difficulty doing errands alone such as visiting a doctor's office or shopping? Answer Date of Assessment Author Status No 08/20/2023 12:00 AM VICE PRESIDENT OF INSTRUCTION Seema Anderson RN Active documented as of this encounter Mental Status * Because of a physical, mental, or emotional condition, do you have serious difficulty concentrating, remembering, or making decisions? Answer Entry Date Author Status No 08/20/2023 12:00 AM VICE PRESIDENT OF INSTRUCTION Seema Anderson RN Active documented in this encounter Plan of Treatment Upcoming Encounters Date Type Department Care Team (Late st Contact Info) Description 04/22/2025 11:20 AM CDT [facility] - [facility] [address] [facility] [place] [address] Anthony Courtney MD [address] [facility] [address] [place] [address] 08/17/2025 2:30 PM VICE PRESIDENT OF INSTRUCTION Office Visit [facility] [facility], [address] [place], [place] [phone] David Rosas MD Three [facility]. [address] [place] [address] documented as of this encounter Visit Diagnoses Not on filedocumented in this encounter Additional Health Concerns Infection Onset Date Last Indicated Resolved Time COVID-19 Rule Out 08/28/2024 08/28/2024 08/28/2024 1:23 PM VICE PRESIDENT OF INSTRUCTION Assessment Noted Time PHQ-9 Depression Total Score: 0 10/09/19 9:28 AM VICE PRESIDENT OF INSTRUCTION documented as of this encounter Care Teams Criminal Judge Relationship Specialty Start Date End Date Jenniffer Londono MD [address] [facility] [address] [place] [phone] PCP - General FAMILY PRACTICE 10/09/23 Dario Sharma MD [address] [place] [address] [place] [address] Consulting Physician INTERVENTIONAL CARDIOLOGY 10/09/23 documented as of this encounter
--- OUTSIDE RECORDS SUMMARY | 2025-04-21 18:31 | XMS_ITS | Encounter Summary ---
Author Organization [facility] Address [facility] [place] [address] Care Team Providers Care Storage Center Manager Name Role Phone Jenniffer Londono MD Primary Care Provider + [phone] Dario Sharma MD Unavailable Unavailable Encounter Details Date Type Department Care Team (Late st Contact Info) Description 08/02/2024 [employer] Message Enc [facility] Medical Group Family Medicine - [place] [address] [facility], [address] [place] [phone] Jenniffer Londono MD [address] [facility] [address] [place] [phone] [employer] Social History Tobacco Use Types Packs/Day Years Used Date Smoking Tobacco: Never Passive Smoke Exposure: Never Smokeless Tobacco: Never Comments:Patient reports she used use e- ciggs and quit in 2019. Also used to smoke cigarillos Alcohol Use Standard Drinks/Week Comments Never 0 (1 standard drink = 0.6 oz pur e alcohol) [facility] Utilities Answer Date Recorded In the [...] week 08/19/2023 How often do you attend [facility] or yazidism services? Patient declined 08/19/2023 Do you belong to any clubs o r organizations such as episcopal groups, unions, fraternal or athletic groups, or [...] Recorded Patient Health Questionnaire-2 Score 0 10/09/2023 [facility] of Occupat ional Health - Occupational [...] PM CDT Legal Sex Female 8:33 AM WAGE AND HOUR INVESTIGATOR Gender Identity Female 02/11/2025 3:24 PM CDT Sexual Orientation Straight 02/11/2025 3: 24 PM CDT documented as of this encounter Functional Status * Are you deaf or do you have serious difficulty hearing Answer Date of Assessment Author Status No 08/20/2023 12:00 AM Seema Scott, RN Active * Are you blind or [...] Assessment Author Status No 08/20/2023 12:00 AM WAGE AND HOUR INVESTIGATOR Seema Anderson, RN Active * Because of a physical, mental, or emotional condition, do you have difficulty doing errands alone such as visiting a doctor's office or shopping? Answer Date of Assessment Author Status No 08/20/2023 12:00 AM WAGE AND HOUR INVESTIGATOR Seema Anderson RN Active documented as of this encounter Mental Status * Because of a physical, mental, or emotional condition, do you have serious difficulty concentrating, remembering, or making decisions? Answer Entry Date Author Status No 08/20/2023 12:00 AM WAGE AND HOUR INVESTIGATOR Seema Anderson RN Active documented in this encounter Plan of Treatment Upcoming Encounters Date Type Department Care Team (Late st Contact Info) Description 04/22/2025 11:20 AM CDT Office Visit [facility] Medical Group Multispecialty Care - [address] [place] [address] Anthony Courtney MD [address] [place] [address] [address] [place] [address] 08/17/2025 2:30 PM WAGE AND HOUR INVESTIGATOR Office Visit [facility] THREE [facility], [address] [place], [place] [phone] David [facility]as MD [facility] [address] [place], [place] [phone] documented as of this encounter Visit Diagnoses Not on filedocumented in this encounter Additional Health Concerns Infection Onset Date Last Indicated Resolved Time COVID-19 Rule Out 08/28/2024 08/28/2024 08/28/2024 1:23 PM WAGE AND HOUR INVESTIGATOR Assessment Noted Time PHQ-9 Depression Total Score: 0 10/09/19 9:28 AM WAGE AND HOUR INVESTIGATOR documented as of this encounter Care Teams Storage Center Manager Relationship Specialty Start Date End Date Jenniffer Londono MD [address] [facility] [address] [place] [address] PCP - General FAMILY PRACTICE 10/09/23 Dario Sharma MD [address] [facility] [address] [place] [address] Consulting Physician INTERVENTIONAL CARDIOLOGY 10/09/23 documented as of this encounter
--- OUTSIDE RECORDS SUMMARY | 2025-04-21 18:31 | XMS_ITS | Encounter Summary ---
Author Organization [facility] Address [facility] [place] [address] Care Team Providers Care Investment Specialist Name Role Phone Jenniffer Londono MD Primary Care Provider + [phone] Dario Sharma MD Unavailable Unavailable Encounter Details Date Type Department Care Team (Latest Contact Info) Description 04/07/2025 Scan HEALTH INFO SRVCS Scanned, Doc Med Group Social History Tobacco Use Types Packs/Day Years Used Date Smoking Tobacco: Never Passive Smoke Exposure: Never Smokeless Tobacco: Never Comments:Patient reports she used use e- ciggs and quit in 2019. Also used to smoke cigarillos Alcohol Use Standard Drinks/Week Comments Not Currently 0 (1 standard drink = 0.6 oz pur e alcohol) occasional [facility] Utilities Answer Date Recorded In the past 12 months has e [employer], gas, oil, or water [employer] threatened to shut off services in your [...] often do you attend chur ch or mandaeism services? Patient declined 08/19/2023 Do you belong [...] Recorded Patient Health Questionnaire-2 Score 0 02/11/2025 [facility] Questionnaire Answer Date Recorded [...] place to sleep or slept in a penitentiary (including now)? No 08/19/2023 Comments No Sex and Gender Information Value Date Recorded Sex Assigned at Female 02/11/2025 3:24 PM CDT Legal Sex Female 8:33 AM DEBONE SUPERVISOR Gender Identity Female 02/11/2025 3:24 PM CDT [...] Date Author Status No 08/20/2023 12:00 AM DEBONE SUPERVISOR Seema Anderson RN Active documented in this encounter Plan of Treatment Upcoming Encounters Date Type Department Care Team (Late st Contact Info) Description 04/22/2025 11:20 AM CDT Office Visit [facility] Medical Group Multispecialty Care - [facility] [address] [place] [address] Anthony Courtney MD [address] [facility] [place] [address] 08/17/2025 2:30 PM DEBONE SUPERVISOR Office Visit [facility] [address] [facility] [facility] [facility] [place], [place] [address] David Rosas MD [address] [facility] [place], [place] [address] documented as of this encounter Visit Diagnoses Not on filedocumented in this encounter Additional Health Concerns Assessment Noted Time PHQ-9 Depression Total Score: 0 02/12/20 25 3:32 PM CDT documented as of this encounter Care Teams Investment Specialist Relationship Specialty Start Date End Date Jenniffer Londono MD [address] [place] [address] PCP - General FAMILY PRACTICE 10/09/23 Dario Sharma MD [address] [place] [address] Consulting Physician INTERVENTIONAL CARDIOLOGY 10/09/23 documented as of this encounter
--- OUTSIDE RECORDS SUMMARY | 2025-04-21 18:31 | XMS_ITS | Encounter Summary ---
Author Organization [facility] Address [facility] [place] [address] Care Team Providers Care Oyster Grower Name Role Phone Jenniffer Londono MD Primary Care Provider + [phone] Dario Sharma MD Unavailable Unavailable Encounter Details Date Type Department Care Team (Late st Contact Info) Description 12/24/2023 Ecorithm Message [facility] [address] [address] Dario Sharma MD Bloodwork Social History Tobacco Use Types Packs/Day Years Used Date Smoking Tobacco: Never Passive Smoke Exposure: Never Smokeless Tobacco: Never Comments:Patient reports she used use e- ciggs and quit in 2019. Also used to smoke cigarillos Alcohol Use Standard Drinks/Week Comments Never 0 (1 standard drink = 0.6 oz pur e alcohol) [facility] Utilities Answer Date Recorded In the past 12 months has [employer], gas, oil, or water [employer] threatened to shut off services in your [...] How often do you attend chur or latter day services? Patient declined 08/19/2023 Do you belong to any clubs o r organizations such as muslim groups, unions, fraternal or athletic groups, or [...] Recorded Patient Health Questionnaire-2 Score 0 10/09/2023 [facility] - [...] place to sleep or slept in a mcc (including now)? 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 Answer Entry Date Author Status No 08/20/2023 12:00 AM DEPOSITING MACHINE OPERATOR Seema Anderson RN Active documented in this encounter Plan of Treatment Upcoming Encounters Date Type Department Care Team (Late st Contact Info) Description 04/22/2025 11:20 AM CDT Office Visit [facility] Medical Group Multispecialty Care - [facility] [address] [facility] [place] [address] Anthony Courtney MD [address] [facility] [address] [place] [address] 08/17/2025 2:30 PM DEPOSITING MACHINE OPERATOR Office Visit [facility] [address] [facility] [facility] [address] [place], [place] [address] David Rosas MD Three [facility] [address] [place] [address] documented as of this encounter Visit Diagnoses Not on filedocumented in this encounter Additional Health Concerns Infection Onset Date Last Indicated Resolved Time COVID-19 Rule Out 08/28/2024 08/28/2024 08/28/2024 1:23 PM DEPOSITING MACHINE OPERATOR Assessment Noted Time PHQ-9 Depression Total Score: 0 10/09/19 9:28 AM DEPOSITING MACHINE OPERATOR documented as of this encounter Care Teams Oyster Grower Relationship Specialty Start Date End Date Jenniffer Londono MD [address] [facility] [address] [place] [phone] PCP - General FAMILY PRACTICE 10/09/23 Dario Sharma MD [address] [facility] [address] [place] [address] Consulting Physician INTERVENTIONAL CARDIOLOGY 10/09/23 documented as of this encounter
[2025-04-21 18:35] VITALS: BP 174/104; PULSE 92; RESP 16; TEMP 36.4; O2SAT 98
--- NOTE | 2025-04-21 18:45 | ED_ITS ---
HPI - Abdominal Pain General Chief Complaint: Fall Stated Complaint: fall 1 week ago Time Seen by Provider: 04/21/25 18:45 Focused HPI: Patient is a 30-year-old female who presents to the ER with left lower quadrant abdominal pain. She reports she approximately a week ago and landed on her bottom. Patient is unsure whether or not her pain is related to this incident. She reports the pain has worsened over the past week and became exceptionally bad on Saturday. Patient reports her pain is not relieved by passing gas. She reports the pain radiates across her lower abdomen. Patient describes the pain as ?pulsating. She endorses a history of CHF, hypertension, ovarian cysts. GENERAL: Well-appearing, well-nourished, and in no acute distress. HEAD: Normocephalic, atraumatic. CHEST: Clear to auscultation. ?No respiratory distress. HEART: Regular rate and rhythm.? NEURO: ?Alert and oriented x3. Patient screened in triage and initial orders placed.? ?Additional care and disposition to be based upon?diagnostic testing and treatment. Related Data Home Medications ?Medication ?Instructions ?Recorded ?Confirmed ?Last Taken ?Type amlodipine 10 mg tablet 10 mg PO DAILY 12/31/23 12/31/23 Unknown History carvedilol 25 mg tablet mg 04/21/25 Unknown History ferrous sulfate 325 mg (65 mg mg 04/21/25 Unknown History iron) tablet folic acid 1 mg tablet 04/21/25 Unknown History losartan 50 mg tablet mg 04/21/25 Unknown History Allergies Allergy/AdvReac Type Severity Reaction Status Date / Time No Known Drug Allergies Allergy none Verified 04/21/25 18:33 Course Vital Signs Vital signs: Vital Signs Temperature 36.4 C 04/21/25 18:35 Pulse Rate 92 04/21/25 18:35 Respiratory Rate 16 04/21/25 18:35 Blood Pressure 174/104 H 04/21/25 18:35 Pulse Oximetry 98 04/21/25 18:35 Temperature 36.4 C 04/21/25 18:35 Pulse Rate 92 04/21/25 18:35 Respiratory Rate 16 04/21/25 18:35 Blood Pressure 174/104 H 04/21/25 18:35 Pulse Oximetry 98 04/21/25 18:35 MDM - Abdominal Pain Lab Data 04/21/25 19:38 04/21/25 19:38 Labs: Lab Results 04/21/25 Range/Units 19:38 WBC 14.5 H (4.5-10.0) K/mm3 RBC 4.65 (4.2-5.4) M/mm3 Hgb 12.7 (12.0-15.0) g/dL Hct 39.8 (37.0-47.0) % MCV 85.6 (80-100) fl MCH 27.3 (26-34) pg MCHC 31.9 L (32-36) g/dl RDW 13.4 (11.5-14.5) % Plt Count 499 H (150-375) k/mm3 MPV 9.0 (7.4-10.4) fl Immature Gran % (Auto) 0.4 (0-0.5) % Neut % (Auto) 65.3 (45.5-73.1) % Lymph % (Auto) 25.0 (18.3-44.2) % [place] % (Auto) 5.5 (2.6-8.5) % Eos % (Auto) 3.5 (0-4.4) % Baso % (Auto) 0.3 (0.2-1.2) % Lymph # (Auto) 3.63 H (0.9-3.2) K/mm3 [place] # (Auto) 0.8 H (0.1-0.6) K/mm3 Eos # (Auto) 0.5 H (0-0.3) K/mm3 Baso # (Auto) 0.1 (0.0-0.1) K/mm3 Abs Immat Gran (auto) 0.06 H (0.00-0.031) K/mm3 Absolute Neuts (auto) 9.5 H (1.3-6.7) K/mm3 Absolute Nucleated RBC 0.000 (0.0-0.012) K/mm3 Nucleated RBC % 0.0 (0.0-0.2) % PT 13.2 (11.1-14.7) Seconds INR 1.0 APTT 25.9 (22.3-36.8) Seconds Sodium 134 L (137-145) mmol/L Potassium 3.7 (3.4-5.0) mmol/L Chloride 102 (98-107) mmol/L Carbon Dioxide 23 (22-30) mmol/L Anion Gap 9 (4-12) mmol/L BUN 8 (7-17) mg/dL Creatinine 0.62 L (0.7-1.0) mg/dL Estim Creat Clear Calc Not Reportable Estimated GFR > 60 (59 - ) Glucose 94 (65-110) mg/dL Calcium 9.2 (8.4-10.2) mg/dL Total Bilirubin 0.4 (0.2-1.3) mg/dL AST 31 (14-36) U/L ALT 30 (6-35) U/L Alkaline Phosphatase 109 (38-126) U/L Total Protein 8.5 H (6.3-8.2) g/dL Albumin 4.6 (3.5-5.1) g/dL Lipase 42 (23-300) U/L Discharge Plan Discharge Clinical Impression: Abdominal pain Patient Disposition: Elopement After Seen by Prov Patient Language: Macedonian Prescriptions: No Action carvedilol 25 mg tablet losartan 50 mg tablet ferrous sulfate 325 mg (65 mg iron) tablet folic acid 1 mg tablet amlodipine 10 mg tablet 10 mg PO DAILY Follow-up/Referrals: Spring,Jenniffer Lowery MD [Primary Care Provider] -
[2025-04-21 19:48] LABS: Hematocrit 39.8 % (37.0-47.0); Hemoglobin 12.7 g/dL (12.0-15.0); Immature Granulocyte Percent A 0.4 % (0-0.5); Lymphocytes Absolute Auto 3.63 K/mm3 (0.9-3.2); Mean Corpuscular HGB Conc 31.9 g/dl (32-36); Mean Corpuscular Hemoglobin 27.3 pg (26-34); Mean Corpuscular Volume 85.6 fl (80-100); Nucleated Red Blood Cells Absolute Auto 0.000 K/mm3 (0.0-0.012); Nucleated Red Blood Cells Perc 0.0 % (0.0-0.2); Platelet Count Result 499 k/mm3 (150-375); Red Blood Count 4.65 M/mm3 (4.2-5.4); White Blood Count 14.5 K/mm3 (4.5-10.0)
[2025-04-21 19:57] LABS: INR 1.0; Prothrombin Time 13.2 Seconds (11.1-14.7)
[2025-04-21 19:58] LABS: Partial Thromboplastin Time 25.9 Seconds (22.3-36.8)
[2025-04-21 20:12] LABS: Alanine Aminotransferase 30 U/L (6-35); Albumin Level 4.6 g/dL (3.5-5.1); Alkaline Phosphatase 109 U/L (38-126); Anion Gap 9 mmol/L (4-12); Aspartate Amino Transferase 31 U/L (14-36); Bilirubin,Total 0.4 mg/dL (0.2-1.3); Blood Urea Nitrogen 8 mg/dL (7-17); Calcium 9.2 mg/dL (8.4-10.2); Carbon Dioxide 23 mmol/L (22-30); Chloride 102 mmol/L (98-107); Estimated Glomerular Filt Rate > 60; Glucose 94 mg/dL (65-110); Lipase 42 U/L (23-300); Potassium 3.7 mmol/L (3.4-5.0); Sodium 134 mmol/L (137-145); Total Protein 8.5 g/dL (6.3-8.2)
--- NOTE | 2025-04-21 20:41 | PC.NURSE ---
Two RNs and triage techs called out for pt numerous times to be revitalized. Pt did not respond to call out and is no longer seen in triage or family room. pt left without being seen.
--- OUTSIDE RECORDS SUMMARY | 2025-04-21 21:18 | XMS_ITS | Clinical Summary ---
Author Organization [facility] Address [facility] [place] [address] Care Team Providers Care Caterpillar Operator Name Role Phone Jenniffer Londono MD Primary Care Provider + [phone] Dario Sharma MD Unavailable Unavailable Allergies Active [...] Scanned, Doc Med Group 03/10/2025 Results Follow-Up [facility] [address] [place] [phone] Jenniffer Londono MD CBC W/DIFF AUTOMATED, COMPREHENSIVE METABOLIC PANEL, LIPID PANEL, Additional followed-up results: 5 03/09/2025 Scan HEALTH INFO SRVCS Scanned, Doc Med Group 03/09/2025 Orders Only [facility] [address] [place] [phone] Jenniffer Londono MD 02/11/2025 3:00 PM CDT Office Visit [facility] [address] [facility], [address] [place] [phone] Jenniffer Londono MD Follow Up (Annual follow up. Left ear muffled, and would like to discuss weight loss medication. (Print lab) ) 02/11/2025 Travel 02/10/2025 2:00 PM CDT Office Visit [facility], [address] [address] Ruma Up NP-C Hypertension; Cardiomyopathy; Shortness Of [...] = 0.6 oz pur e alcohol) occasional [facility] [place] Utilities Answer Date Recorded In the past 12 months has th e [employer], gas, oil, or water [employer] threatened to shut off services in your [...] often do you attend chur ch or orthodox services? Patient declined 08/19/2023 Do you belong to any clubs o r organizations such as restoration groups, unions, fraternal or athletic groups, or [...] Recorded Patient Health Questionnaire-2 Score 0 02/11/2025 [facility] Questionnaire Answer Date [...] place to sleep or slept in a residential (including now)? No 08/19/2023 Comments No Sex and Gender Information Value Date Recorded Sex Assigned at Female 02/11/2025 3:24 PM CDT Legal Sex Female 8:[address] Gender Identity Female 02/11/2025 3:24 PM CDT [...] Description 04/22/2025 11:20 AM CDT Office Visit [facility] Medical Group Multispecialty Care - [address] [place] [address] Anthony Courtney MD [address] [facility] [address] [place] [address] 08/17/2025 2:[address] [facility] [address] [facility], [address] [place] [address] David Rosas MD Three [facility] [place], [place] [address] Health Maintenance Due Date Last Done Comments [...] 1995, 1995, Additional history exists PHQ-2 (Physician [place]) Completed 02/11/2025 Meningococcal B Vaccine Aged Out [...] 03/17/2025 2:10 PM CDT Performed at: - [facility] [id number] Napping Machine Operator: Leandro Singh PhD, Phone: [phone] us Jenniffer Londono MD LABORATORY Final Result Performing Organization Address City/[facility] Co de Phone Number [facility] [address] [place] [address] [facility] 1 * FERRITIN (03/16/2025 1:14 PM CDT) Only the most recent of2 resultswithin the time period is included. FERRITIN 53 15 - 150 ng/mL [facility] 1 03/16/2025 1:14 PM CDT 03/16/2025 Narrative [facility] - 03/17/2025 2:10 PM CDT Performed at: - [facility] [id number] Napping Machine Operator: Leandro Singh PhD, Phone: [phone] us Jenniffer Londono MD LABORATORY Final Result Performing Organization Address [facility] Co de Phone Number [facility] [address] [place] [phone] [facility] 1 * TEST AUTHORIZATION (03/09/2025 10:44 AM CDT) REPORT STATUS COMMENT [facility] 1 Comment: Written Authorization Written Authorization No Written Authorization Received. 03/09/2025 10:4 4 AM CDT 03/09/2025 Narrative [facility] - 04/02/2025 11:36 AM CDT Performed at: [facility] [id number] Napping Machine Operator: Leandro Singh PhD, Phone: [phone] us Jenniffer Londono MD LABORATORY Final Result Performing Organization Address City/[facility] Co de Phone Number [facility] [address] [place] [address] [facility] 1 * (ABNORMAL) HEMOGLOBIN, GLYCOSYLATED (03/09/2025 10:44 AM CDT) [facility] HGB A1C 5.8(H) 4.8 - 5.6 % [facility] 1 Comment: Prediabetes: 5.7 - 6.4 Diabetes: >6.4 Glycemic control for adults with diabetes: <7.0 03/09/2025 10:4 4 AM CDT 03/09/2025 Narrative [facility] - 03/10/2025 11:36 AM CDT Performed at: [address] [place] [id number] Napping Machine Operator: Leandro Singh PhD, Phone: [phone] Jenniffer Londono MD LABORATORY Final Result Performing Organization Address [facility] de Phone Number [facility] [address] [place] [address] [facility] 1 * T4 AND TSH (03/09/2025 10:44 AM CDT) [facility] TSH 1.540 0.450 - 4.50 uIU/mL [facility] 1 03/09/2025 10:4 4 AM CDT 03/09/2025 Narrative [facility] - 03/10/2025 11:36 AM CDT Performed at: [address] [place] [id number] Napping Machine Operator: Leandro Singh PhD, Phone: [phone] Jenniffer Londono MD LABORATORY Final Result Performing Organization Address City/[facility] Co de Phone Number [facility] [address] [place] [phone] [facility] 1 * ALBUMIN URINE RANDOM W/CREATININE (03/09/2025 10:44 AM CDT) [facility] CREATININE (URINE) 178.5 Not Estab. mg/dL [facility] 1 ALBUMIN (U) 9.0 Not Estab. ug/mL [facility] 1 ALBUMIN/CREAT RATIO 5 0 - 29 mg/g creat [facility] 1 Comment: Normal: 0 - 29 Moderately increased: 30 - 300 Severely increased: >300 03/09/2025 10:4 4 AM CDT 03/09/2025 Narrative [facility] - 03/10/2025 11:36 AM CDT Performed at: 01 - [facility] [id number] Napping Machine Operator: Leandro Singh PhD, Phone: [phone] us Jenniffer Londono MD URINE ORDERABLES Final Resul t [facility] [address] [place] [address] [facility] 1 * COMPREHENSIVE METABOLIC PANEL (03/09/2025 [...] - 03/10/2025 11:36 AM CDT Performed at: [facility] [id number] Napping Machine Operator: Leandro Singh PhD, Phone: [phone] Jenniffer Londono MD LABORATORY Final Result Performing Organization Address [facility] de Phone Number [facility] [address] [place] [address] [facility] 1 * (ABNORMAL) LIPID PANEL (03/09/2025 [...] - 03/10/2025 11:36 AM CDT Performed at: [facility] [id number] Napping Machine Operator: Leandro Singh PhD, Phone: [phone] Jenniffer Londono MD LABORATORY Final Result Performing Organization Address [facility] de Phone Number [facility] [address] [place] [address] [facility] 1 * (ABNORMAL) CBC W/DIFF AUTOMATED [...] AM CDT Performed at: 01 - [facility] [address] [id number] Napping Machine Operator: Leandro Singh PhD, Phone: [phone] Jenniffer Londono MD LABORATORY Final Result Performing Organization Address City/State/[facility] Co de Phone Number [facility] [address] [place] [address] [facility] 1 from Last 3 Months Insurance [employer] Advance Directives * Full Code (Latest Code Status on File) Date Activated Date Inactivated Comments 08/19/2023 8:59 PM 08/21/2023 4:01 PM * Full Code Date Activated Date Inactivated Comments 08/17/2023 1:09 PM 08/19/2023 8:56 PM Care Teams Caterpillar Operator Relationship Specialty Start Date End Date Jenniffer Londono MD [address] [place] [address] PCP - General FAMILY PRACTICE 10/09/23 Dario Sharma MD [address] [place] [address] Consulting Physician INTERVENTIONAL CARDIOLOGY 10/09/23
--- OUTSIDE RECORDS SUMMARY | 2025-04-21 21:18 | XMS_ITS | Clinical Summary ---
Author Organization [facility] Address [address], [facility] [address] [place] [address] Phone Care Team Providers Care Prosthetic Aide Name Role Phone Jenniffer Londono MD Primary Care Provider + [phone] Allergies No known active allergies Medications amLODIPine [...] 04/09/2025 Results Follow-Up [facility] [address] [address] Seema Sandoval RN ERYTHROCYTE SEDIMENTATION RATE (ESR), RETICULOCYTE COUNT (RETIC), FOLIC ACID (FOLATE), Additional followed-up results: 7 04/07/2025 12:00 PM CDT Lab [facility] [address] [phone] Lab, Cc Arethaon Thrombocytosis 04/07/2025 10:30 AM CDT Office Visit [facility] [address] [phone] Bong Shi MD Thrombocytosis (Primary Dx) 04/07/2025 [...] CDT Office Visit [facility] [address] [phone] Bong Shi MD [address] [place] [phone] Health Maintenance Due Date Last Done Comments [...] [place] Routine 04/07/2025 12:01 PM CDT FERRITIN [id number] [place] Routine 04/07/2025 12 :01 PM CDT COMP. METABOLIC PANEL [id number] [place] Routine 04/07/2025 12:01 PM CDT IRON AND TIBC [id number] [place] Routine 04/07/2025 12:01 PM CDT TSH [id number] [place] Routine 04/07/2025 12:01 PM CDT LACTATE [...] Months Results * (ABNORMAL) IRON AND TIBC [id number] [place] (04/07/2025 12:01 PM CDT) Iron Bind.Cap.(TIBC) 340 250 - 450 UG/DL CANCER PATIENT INTAKE REPRESENTATIVE [facility] UIBC 302 131 - 425 UG/DL CANCER PATIENT INTAKE REPRESENTATIVE [facility] Iron, Serum 38 27 - 159 UG/DL [facility] PATIENT INTAKE REPRESENTATIVE Iron Saturation 11(L) 15 - 55 % CANC PATIENT INTAKE REPRESENTATIVE 04/07/2025 12:0 1 PM CDT Narrative CANCER PATIENT INTAKE REPRESENTATIVE - 04/08/2025 10:07 AM CDT TESTING PERFORMED AT: [] [facility], [address] [place] [address], [place], [address], PHONE: [phone], INFORMATION ASSISTANT: BRUNO CASTILLO, PHD us Bong Shi MD LAB SEND OUTS Final Resul t CANCER PATIENT INTAKE REPRESENTATIVE [facility] [address] [place] [address], * FERRITIN [id number] [place] (04/07/2025 12:01 PM CDT) Ferritin, Serum 40 15 - 150 NG/ML CANCER PATIENT INTAKE REPRESENTATIVE [facility] 04/07/2025 12:0 1 PM CDT Narrative CANCER PATIENT INTAKE REPRESENTATIVE - 04/08/2025 7:08 AM CDT TESTING PERFORMED AT: [] [facility], [address] [facility], [place], [address], PHONE: [phone], INFORMATION ASSISTANT: BRUNO CASTILLO, PHD us Bong Shi MD LAB SEND OUTS Final Resul t CANCER PATIENT INTAKE REPRESENTATIVE [facility] [address] [place] [address], [place] [phone] * (ABNORMAL) COMP. METABOLIC PANEL [id number] [place] (04/07/2025 12:01 PM CDT) GLUCOSE, SERUM 91 70 - 99 MG/DL [facility] PATIENT INTAKE REPRESENTATIVE [facility] BUN 5(L) 6 - 20 MG/DL [facility] CREATININE, SERUM 0.66 0.57 - 1.00 MG/DL [facility] EGFR 121 >59 ML/MIN/1.7 3 [facility] PATIENT INTAKE REPRESENTATIVE BUN/CREATININE RATIO 8(L) 9 - 23 [facility] SODIUM, SERUM 139 134 - 144 MMOL/L [facility] POTASSIUM, SERUM 4.0 3.5 - 5.2 MMOL/L [facility] CHLORIDE, SERUM 103 96 - 106 MMOL/L [facility] CARBON DIOXIDE, TOTAL 20 20 - 29 MMOL/L [facility] CALCIUM, SERUM 9.4 8.7 - 10.2 MG/DL [facility] PROTEIN, TOTAL, SERUM 7.1 6.0 - 8.5 G/DL [facility]ENT[facility] ALBUMIN, SERUM 4.3 4.0 - 5.0 G/DL [facility] GLOBULIN, TOTAL 2.8 1.5 - 4.5 G/DL [facility] BILIRUBIN, TOTAL 0.3 0.0 - 1.2 MG/DL [facility]ENT[facility] ALKALINE PHOSPHATASE, S 90 44 - 121 IU/L [facility] AST (SGOT) 16 0 - 40 IU/L [facility] PATIENT INTAKE REPRESENTATIVE [facility] ALT (SGPT) 20 0 - 32 IU/L CANCER PATIENT INTAKE REPRESENTATIVE [facility] 04/07/2025 12:0 1 PM CDT Narrative CANCER PATIENT INTAKE REPRESENTATIVE [facility] - 04/08/2025 10:07 AM CDT TESTING PERFORMED AT: [] [facility], [address] [place] [address], [address], PHONE: [phone], INFORMATION ASSISTANT: BRUNO CASTILLO, PHD us Bong Shi MD LAB SEND OUTS Final Resul t Performing Organization Address [facility] Co de Phone Number CANCER PATIENT INTAKE REPRESENTATIVE [facility] [address] [place] [address], [place] [phone] * TSH [id number] [place] (04/07/2025 12:01 PM CDT) TSH 1.250 0.450 - 4.500 UIU/ML CANCER PATIENT INTAKE REPRESENTATIVE [facility] 04/07/2025 12:0 1 PM CDT [facility] CANCER PATIENT INTAKE REPRESENTATIVE - 04/08/2025 10:07 AM CDT TESTING PERFORMED AT: [] [facility], [address] [place] [address], [address], PHONE: [phone], INFORMATION ASSISTANT: BRUNO CASTILLO, PHD us Bong Shi MD LAB SEND OUTS Final Resul t Performing Organization Address [facility] Co de Phone Number CANCER PATIENT INTAKE REPRESENTATIVE [facility] [address] [place] [address], [place] [phone] * (ABNORMAL) CBC WITH AUTO DIFF [place] (04/07/2025 12:01 PM CDT) WBC 9.0 4.0 - 10.0 10*3/uL CANCER PATIENT INTAKE REPRESENTATIVE [facility] HGB 12.5 11.2 - 15.7 g/dL CANCER PATIENT INTAKE REPRESENTATIVE [facility] HCT 39.0 34.1 - 44.9 % CANCER PATIENT INTAKE REPRESENTATIVE [facility] PLT 460(H) 163 - 369 10*3/uL CANCER PATIENT INTAKE REPRESENTATIVE [facility] MPV 8.9(L) 9.4 - 12.4 fL CANCER PATIENT INTAKE REPRESENTATIVE [facility] RBC 4.51 3.93 - 5.22 10*6/uL CANCER PATIENT INTAKE REPRESENTATIVE [facility] MCV 87 79 - 95 fL CANCER PATIENT INTAKE REPRESENTATIVE [facility] MCH 27.7 25.6 - 32.2 pg CANCER PATIENT INTAKE REPRESENTATIVE [facility] MCHC 32.1(L) 32.2 - 36.5 g/dL CANCER PATIENT INTAKE REPRESENTATIVE [facility] RDW 13.4 11.6 - 14.4 % CANCER PATIENT INTAKE REPRESENTATIVE [facility] Neutrophils % 61.8 36.0 - 66.0 % CANCER PATIENT INTAKE REPRESENTATIVE [facility] Lymphocytes % 28.4 19.0 - 40.0 % CANCER PATIENT INTAKE REPRESENTATIVE [facility] Monocytes % 5.8 4.1 - 12.1 % CANCER PATIENT INTAKE REPRESENTATIVE [facility] Eosinophils % 3.2 0.0 - 3.5 % [facility] PATIENT INTAKE REPRESENTATIVE [facility] Basophils % 0.4 0.0 - 1.0 % CANCER PATIENT INTAKE REPRESENTATIVE Absolute Neutrophils 5.6 1.4 - 6.6 10*3/uL CANCER PATIENT INTAKE REPRESENTATIVE Absolute Lymphocytes 2.6 0.8 - 4.0 10*3/uL CANCER PATIENT INTAKE REPRESENTATIVE Absolute Monocytes 0.5 0.2 - 1.2 10*3/uL [facility] PATIENT INTAKE REPRESENTATIVE Absolute Eosinophils 0.3 0.0 - 0.4 10*3/uL [facility] PATIENT INTAKE REPRESENTATIVE Absolute Basophils 0.0 0.0 - 0.1 10*3/ CANCER PATIENT INTAKE REPRESENTATIVE 04/07/2025 12:0 1 PM CDT us Bong Shi MD LAB SEND OUTS Final Resul t CANCER PATIENT INTAKE REPRESENTATIVE [facility] [place] [address], * [facility] N[facility] JAK2 V617F REFLEX JAK2 EXON 12, CALR AND H (04/07/2025 12:01 PM CDT) NGS JAK2 V617 RX EXON12 NORMAL CANCER PATIENT INTAKE REPRESENTATIVE [facility] ONKOSIT NGS MPL SEQUENCING NORMAL CANCER PATIENT INTAKE REPRESENTATIVE [facility] NGS JAK2 EXON 12 SEQUENCING NORMAL CANCER CE NTER SPECIALISTS [facility] N[facility] CALR SEQUENCING NORMAL CANCER PATIENT INTAKE REPRESENTATIVE [facility] N[facility] JAK2 V617F SEQUENCING NORMAL CANCER CENT ER SPECIALISTS [facility] Comment: OnkoSight JAK2 V617F Rx JAK2 Exon [...] Not Applicable INTERPRETATION SUMMARY SEE BELOW CANCER PATIENT INTAKE REPRESENTATIVE Comment: INTERPRETATION SUMMARY: - This was a [...] interpret these findings. METHODS SEE BELOW [facility] Comment: METHODS: Tissue macrodissection and DNA [...] (BERTHA), used after sequencing on an Illumina Spotfav Reporting Technologiesq instrument ([place], [place]) with paired end, 151 base pair reads to collapse PCR duplicates and enable accurate counting of variant allelic frequencies. A minimum number of 100 unique reads (after removal of PCR duplicates) to detect a mutation is required. An automated process that takes into account statistical confidence of base calling and alignment and mapping quality identifies variants (PISTIS Consult Analysis Software version 6.2.7, Released 24 Feb 2020). Following mapping of the read data to the human genome (reference build GRCh37/hg19), single nucleotide variants (SNVs), and insertion deletion events (Indels) with an allele frequency (AF) greater than 2% are detected utilizing [employer] Analysis bioinformatic analytical pipeline with the exception [...] Recommendation of the Association for Molecular Pathology, [place] Society of Clinical Oncology, and College of [place] Pathologists. The Journal of molecular diagnostics: JMD. 2017 Sep;19(1):4-23. doi: 10.1016/j.jmoldx.2016.10.002. PubMed Central PMCID: CAN0117102. PubMed PMID: (33542481)). OnkoSightAdvanced was developed and its performance characteristics were determined by [employer], a division of flux - neutrinity. This test has not been cleared or [...] comes from numerous sources, is subject to private branch exchange service advisor time in response to future scientific and medical findings and correlations. flux - neutrinity. makes no representation or warranty of any kind regarding the accuracy of information provided or contained in these manuscripts, references or other sources of information. If any of the information provided by or contained in the referenced material is later deemed to be inaccurate, this may impact the accuracy of this report and interpretation of the findings. flux - neutrinity. is not obligated to notify you of [...] This assay has been approved by the [facility] based on initial validation; orthogonal testing for full validation is currently ongoing. Please contact the laboratory for more information if update is requested. REFERENCES 1 SEE BELOW CANCER PATIENT INTAKE REPRESENTATIVE OF [facility] Comment: REFERENCES: 1. Radha MM, Samantha M, Margoth EJ, Valeri S, Neha NI, Scott S, Demian AM, Sajan CL, Christelle DJ, Yi A, [place]. Standards and Guidelines for the Interpretation and Reporting of Sequence Variants in Cancer: A Joint Consensus Recommendation of the Association for Molecular Pathology, [place] Society of Clinical Oncology, and College of [place] Pathologists. The Journal of molecular diagnostics : JMD. 2017 Sep;19(1):4-23. doi: 10.1016/j.jmoldx.2016.10.002. PubMed PMID: 48721526. PubMed Central PMCID: [id number]. 2. Genome Aggregation Database (gnomAD), [place], [place] (URL: https://gnomad.broadActiveRaintitute.org) [March,] 3. Lisy Batres. World health organization classification, evaluation, and genetics of the myeloproliferative neoplasm variants. Hematology. [place] Society of Hematology. Education Program. 2010;0845357-6. doi: 10.1182/asheducation-2010.1.250. PubMed PMID: 08665278. 4. Coy P, Kalpesh A, Landy R, Looser R, Anton-Solomon H, Xin I, Girsberger S, Bhargav T, Lina J, Keller M, Marlee C, Bryant R, Skcherrie RC. Clonal evolution and clinical correlates of somatic mutations in myeloproliferative neoplasms. Blood. 2014 Dec 31;123(14):2220-8. Epub 2013Oct 28. doi: 10.1182/yzhqo-1297-47-754326. PubMed PMID: 40948129. 5. Jenniferini E, Bernardis I, Artusi V, Artuso L, Roncabhavinia E, Fletcher P, Clintoni L, Farrahani C, Porshae F, Serafino G, Tomi C, Betsy E, Devika A, Zaheer T, Elier Bradford, Bryant S, Srinivas R, Elisa OSMAN, Mami Bedolla, Targeted cancer exome sequencing reveals recurrent mutations in myeloproliferative neoplasms. Leukemia. 2014 January;28(5):1052-9. Epub 2012Jul 21. doi: 10.1038/kwasi.2013.302. PubMed PMID: 27034519. PubMed Central PMCID: QAA6354651. 6. Kalyan T, Simon D, Yuly N, Vitaliy N, Blair Y, Krista Y, Enjacqueline Y, Juanis N, Uchida T, Kaanne Y, Noam K, Camronta CHERIE, Nagase R, Horikawa S, Marly Y, Saimelda M, Fukuymelida T, Bony K, Oki T, Leroy F, Vanna Higginbotham. The molecular basis of myeloid malignancies. Proceedings of the [place] Academy. Series B, Physical and biological sciences. 2014;90(10):389-404. PubMed PMID: 68079676. PubMed Central PMCID: FBF6097593. REPORT FOOTER SEE BELOW CANCER PATIENT INTAKE REPRESENTATIVE [facility] Comment: Airam Toure M.D., Nurse Practitioner Manager Electronically signed by Mercedez Teran, PhD, [facility] [employer] is a division of flux - neutrinity [facility] [place] [address] Created SatApr 13 18:20:12 EDT 2024 04/07/2025 12:0 1 PM CDT Narrative CANCER PATIENT INTAKE REPRESENTATIVE [facility] - 04/13/2025 6:46 PM CDT Testing performed at: [facility] [place] [address], Nurse Practitioner Manager: Dr. Tin Zarate M.D.; [facility] Accn#:[id number] Release to patient->Immediate us Bong Shi MD LAB SEND OUTS Final Resul t CANCER PATIENT INTAKE REPRESENTATIVE [facility] [place] [address], [place] [phone] * VITAMIN B12 (04/07/2025 12:01 PM CDT) Vitamin B12 186 180 - 914 pg/mL CANCER PATIENT INTAKE REPRESENTATIVE [facility] Blood 04/07/2025 12:0 1 PM CDT [facility] CANCER PATIENT INTAKE REPRESENTATIVE [facility] - 04/08/2025 2:21 PM CDT Release to patient->Immediate us Bong Sih MD CHEMISTRY ORDERABLES Final Result Performing Organization Address City/[facility]/ZIP Co de Phone Number CANCER PATIENT INTAKE REPRESENTATIVE [facility] [address] [place] [address], [place] [phone] * ERYTHROCYTE SEDIMENTATION RATE (ESR) (04/07/2025 12:01 PM CDT) Erythrocyte Sedimentation Rate 10 0 - 30 mm/hr CANCER PATIENT INTAKE REPRESENTATIVE [facility] Blood 04/07/2025 12:0 1 PM CDT [facility] CANCER PATIENT INTAKE REPRESENTATIVE [facility] - 04/07/2025 1:19 PM CDT Release to patient->Immediate us Bong Shi MD HEMATOLOGY ORDERABLES Final Result Performing Organization Address [facility] Co de Phone Number CANCER PATIENT INTAKE REPRESENTATIVE [facility] [address] [place] [address], * RETICULOCYTE COUNT (RETIC) (04/07/2025 12:01 PM CDT) Reticulocyte count 1.60 0.50 - 1.70 % CANCER PATIENT INTAKE REPRESENTATIVE [facility] RET-He 30.50 28.20 - 36.60 pg CANCER PATIENT INTAKE REPRESENTATIVE [facility] Comment: RET-He is a direct assessment of incorporation of iron into erythrocyte hemoglobin. It provides an indirect measure of the iron available for new erythropoiesis over past 2-4 days. Blood 04/07/2025 12:0 1 PM CDT [facility] CANCER PATIENT INTAKE REPRESENTATIVE - 04/07/2025 12:21 PM CDT Release to patient->Immediate us Bong Shi MD HEMATOLOGY ORDERABLES Final Result Performing Organization Address [facility] Co de Phone Number CANCER PATIENT INTAKE REPRESENTATIVE [facility] [place] [address], [place] [phone] * (ABNORMAL) LACTATE DEHYDROGENASE (LD) (04/07/2025 12:01 PM CDT) LDH 124(L) 140 - 271 U/L CANCER PATIENT INTAKE REPRESENTATIVE [facility] Blood 04/07/2025 12:0 1 PM CDT [facility] CANCER PATIENT INTAKE REPRESENTATIVE - 04/07/2025 12:55 PM CDT Release to patient->Immediate us Bong Shi MD CHEMISTRY ORDERABLES Final Result Performing Organization Address [facility] de Phone Number CANCER PATIENT INTAKE REPRESENTATIVE [facility] [place] [address], [place] [phone] * (ABNORMAL) FOLIC ACID (FOLATE) (04/07/2025 12:01 PM CDT) Folate 5.34(L) >=5.90 ng/mL CANCER PATIENT INTAKE REPRESENTATIVE Blood 04/07/2025 12:0 1 PM CDT [facility] CANCER PATIENT INTAKE REPRESENTATIVE - 04/08/2025 2:21 PM CDT Release to patient->Immediate IS THE PATIENT REQUIRED TO BE FASTING FOR 12 HOURS?->No us Bong Shi MD CHEMISTRY ORDERABLES Final Result Performing Organization Address [facility] Co de Phone Number CANCER PATIENT INTAKE REPRESENTATIVE [place] [address], [place] [phone] from Last 3 Months Insurance MEDICAID [employer] [facility] Care Teams Prosthetic Aide Relationship Specialty Start Date End Date Jenniffer Londono MD [address] [facility] [address] [place] [address] PCP - General Internal Medicine 03/26/25
--- OUTSIDE RECORDS SUMMARY | 2025-04-21 21:18 | XMS_ITS | Encounter Summary ---
Author Organization [facility] Address [facility] [place] [address] Care Team Providers Care Linderman Operator Name Role Phone Jenniffer Londono MD Primary Care Provider + [phone] Dario Sharma MD Unavailable Unavailable Encounter Details Date Type Department Care Team (Late st Contact Info) Description 11/01/2023 Teachernow Message [facility] [address] Dario Sharma MD Jacqueline jackson Social History Tobacco Use Types Packs/Day Years Used Date Smoking Tobacco: Never Passive Smoke Exposure: Never Smokeless Tobacco: Never Comments:Patient reports she used use e- ciggs and quit in 2019. Also used to smoke cigarillos Alcohol Use Standard Drinks/Week Comments Never 0 (1 standard drink = 0.6 oz pur e alcohol) [facility] Utilities Answer Date Recorded In the past 12 months has [facility], gas, oil, or water [employer] threatened to shut off services in your [...] How often do you attend chur or episcopalian services? Patient declined 08/19/2023 Do you belong to any clubs o r organizations such as mandaeism groups, unions, fraternal or athletic groups, or [...] place to sleep or slept in a assisted (including now)? No 08/19/2023 Comments No Sex and Gender Information Value Date Recorded Sex Assigned at Female 02/11/2025 3:24 PM CDT Legal Sex Female 8:33 AM ACCOUNT SERVICES MANAGER Gender Identity Female 02/11/2025 3:24 PM CDT [...] Assessment Author Status No 08/20/2023 12:00 AM ACCOUNT SERVICES MANAGER Seema Anderson RN Active documented as of this encounter Mental Status * Because of a physical, mental, or emotional condition, do you have serious difficulty concentrating, remembering, or making decisions? Answer Entry Date Author Status No 08/20/2023 12:00 AM ACCOUNT SERVICES MANAGER Seema Anderson RN Active documented in this encounter Plan of Treatment Upcoming Encounters Date Type Department Care Team (Late st Contact Info) Description 04/22/2025 11:20 AM CDT Office Visit [facility] Medical [facility] Multispecialty Care - [facility] [address] [facility] [place] [address] Anthony Courtney MD [address] [place] [address] 08/17/2025 2:30 PM ACCOUNT SERVICES MANAGER Office Visit [facility] [address] [facility] [place], [place] [id number] David Rosas MD [address] [facility] [address] [place] [address] documented as of this encounter Visit Diagnoses Not on filedocumented in this encounter Additional Health Concerns Infection Onset Date Last Indicated Resolved Time COVID-19 Rule Out 08/28/2024 08/28/2024 08/28/2024 1:23 PM ACCOUNT SERVICES MANAGER Assessment Noted Time PHQ-9 Depression Total Score: 0 10/09/19 9:28 AM ACCOUNT SERVICES MANAGER documented as of this encounter Care Teams Linderman Operator Relationship Specialty Start Date End Date Jenniffer Londono MD [address] [facility] [address] [place] [id number] PCP - General FAMILY PRACTICE 10/09/23 Dario Sharma MD [address] [address] [place] [address] Consulting Physician INTERVENTIONAL CARDIOLOGY 10/09/23 documented as of this encounter
--- OUTSIDE RECORDS SUMMARY | 2025-04-21 21:18 | XMS_ITS | Encounter Summary ---
Author Organization [facility] Address [facility] [place] [address] Care Team Providers Care Erp Pm Name Role Phone Jenniffer Londono MD Primary Care Provider + [phone] Dario Sharma MD Unavailable Unavailable Encounter Details [...] = 0.6 oz pur e alcohol) occasional [facility] Utilities Answer Date Recorded In the past 12 months has e Xenith, gas, oil, or water [employer] threatened to shut off services in your [...] often do you attend chur ch or advent services? Patient declined 08/19/2023 Do you belong [...] Recorded Patient Health Questionnaire-2 Score 0 02/11/2025 [facility] Answer Date [...] place to sleep or slept in a prison (including now)? No 08/19/2023 Comments No Sex and Gender Information Value Date Recorded Sex Assigned at Female 02/11/2025 3:24 PM CDT Legal Sex Female 8:33 AM BLOCK SEALER Gender Identity Female 02/11/2025 3:24 PM CDT [...] Date Author Status No 08/20/2023 12:00 AM BLOCK SEALER Seema Anderson RN Active documented in this encounter Plan of Treatment Upcoming Encounters Date Type Department Care Team (Late st Contact Info) Description 04/22/2025 11:20 AM CDT Office Visit [facility] Medical Group Multispecialty Care - [facility] [address] [place] [address] Anthony Courtney MD [facility] [address] [place] [address] 08/17/2025 2:30 PM BLOCK SEALER Office Visit [facility] [facility] [address] [place], [place] [address] David Rosas MD [facility] [address] [place], [place] [address] documented as of this encounter Visit Diagnoses Not on filedocumented in this encounter Additional Health Concerns Assessment Noted Time PHQ-9 Depression Total Score: 0 02/12/20 25 3:32 PM CDT documented as of this encounter Care Teams Erp Pm Relationship Specialty Start Date End Date Jenniffer Londono MD [address] [place] [address] PCP - General FAMILY PRACTICE 10/09/23 Dario Sharma MD [address] [place] [address] Consulting Physician INTERVENTIONAL CARDIOLOGY 10/09/23 documented as of this encounter
--- OUTSIDE RECORDS SUMMARY | 2025-04-21 21:18 | XMS_ITS | Encounter Summary ---
Author Organization [facility] Address [facility] [place] [address] Care Team Providers Care Skid Wrapper Name Role Phone Jenniffer Londono MD Primary Care Provider + [phone] Dario Sharma MD Unavailable Unavailable Encounter Details Date Type Department Care Team (Late st Contact Info) Description 08/02/2024 [place] Message Enc [facility] Medical Group Family Medicine - [place] [address] [facility], [address] [place] [phone] Jenniffer Londono MD [address] [facility] [address] [place] [phone] Losartan Social History Tobacco Use Types Packs/Day Years Used Date Smoking Tobacco: Never Passive Smoke Exposure: Never Smokeless Tobacco: Never Comments:Patient reports she used use e- ciggs and quit in 2019. Also used to smoke cigarillos Alcohol Use Standard Drinks/Week Comments Never 0 (1 standard drink = 0.6 oz pur e alcohol) [facility] Utilities Answer Date Recorded In [...] week 08/19/2023 How often do you attend [facility] or hindu services? Patient declined 08/19/2023 Do you belong to any clubs o r organizations such as adventism groups, unions, fraternal or athletic groups, or [...] Recorded Patient Health Questionnaire-2 Score 0 10/09/2023 [facility] Occupat ional Health - [...] place to sleep or slept in a chcf (including now)? No 08/19/2023 Comments No Sex and Gender Information Value Date Recorded Sex Assigned at Female 02/11/2025 3:24 PM CDT Legal Sex Female 8:33 AM NURSE OFFICE Gender Identity Female 02/11/2025 3:24 PM CDT [...] Assessment Author Status No 08/20/2023 12:00 AM NURSE OFFICE Seema Anderson, RN Active * Because of a physical, mental, or emotional condition, do you have difficulty doing errands alone such as visiting a doctor's office or shopping? Answer Date of Assessment Author Status No 08/20/2023 12:00 AM NURSE OFFICE Seema Anderson RN Active documented as of this encounter Mental Status * Because of a physical, mental, or emotional condition, do you have serious difficulty concentrating, remembering, or making decisions? Answer Entry Date Author Status No 08/20/2023 12:00 AM NURSE OFFICE Seema Anderson RN Active documented in this encounter Plan of Treatment Upcoming Encounters Date Type Department Care Team (Late st Contact Info) Description 04/22/2025 11:20 AM CDT Office Visit [facility] Medical Group Multispecialty Care - [address] [place] [address] Anthony Courtney MD [address] [place] [address] [address] [place] [address] 08/17/2025 2:30 PM NURSE OFFICE Office Visit [facility] THREE [facility], [address] [place], [place] [phone] David Rosas MD [facility]. [facility] [address] [place], [place] [address] documented as of this encounter Visit Diagnoses Not on filedocumented in this encounter Additional Health Concerns Infection Onset Date Last Indicated Resolved Time COVID-19 Rule Out 08/28/2024 08/28/2024 08/28/2024 1:23 PM NURSE OFFICE Assessment Noted Time PHQ-9 Depression Total Score: 0 10/09/19 9:28 AM NURSE OFFICE documented as of this encounter Care Teams Skid Wrapper Relationship Specialty Start Date End Date Jenniffer Londono MD [address] [facility] [address] [place] [address] PCP - General FAMILY PRACTICE 10/09/23 Dario Sharma MD [address] [facility] [address] [place] [address] Consulting Physician INTERVENTIONAL CARDIOLOGY 10/09/23 documented as of this encounter
--- OUTSIDE RECORDS SUMMARY | 2025-04-21 21:18 | XMS_ITS | Clinical Summary ---
Author Organization [facility] Address [address] [place] [address] Care Team Providers Care Mock Up Builder Name Role Phone Tin Engle MD Primary Care Provider [phone] Allergies Active Allergy Reactions Criticality Noted Date [...] # Disposition: Follow up task sent to [facility] scheduling pool. Continue routine care. Desires [...] Education: Completed in all 3 trimesters [x] Meat Products Demonstrator: Dr. Flavio Munguia [x ] Car seat [...] Type Department Care Team Description 01/27/2025 Telephone [facility] Department of Surgery [address] [place] [address] [place] [address] Prema Horan 01/21/2025 8:10 AM CDT Lab [facility] [address] [facility] [place] [address] Umbilical hernia without obstruction and [...] How often do you attend chur or sikhism services? Never 08/10/2023 Do you belong to any clubs o r organizations such as yazdanism groups, unions, fraternal or athletic groups, or [...] staff should administer the PHQ-9) 0 12/21/2019 [facility] of Occupat ional Health - Occupational Stress [...] slept in a penitentiary (including now)? 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 file Not on file Not [...] Spauldingis on, Marisa Hilliard MD Complications:None Delivery Location:[facility] Main C ampus ([facility] L AND D PROCEDURE) 2022 Term 38w 5d 0h 04m 0h 04m 2.91 kg (6 lb 6.7 oz) M C-Sec tion Epidur al N Livin g 8 9 JACKS ON,RODGER YJACQ BILLY taylor, Tyra garcia MD Complications:None Delivery Location:[facility] Main C ampus ([facility] L AND D PROCEDURE) Comments 2019- MarleeModerate [...] AM CDT) Nicotine, ur 12(H) <5.0 ng/mL [place] ref [facility] Cotinine, ur 12(H) <5.0 ng/mL [facility] Anabasine ur <2.0 <2.0 ng/mL LINDA [facility] Comment: ADDITIONAL INFORMATION This test was developed and its performance characteristics determined by [facility] in a manner consistent with CLIA requirements. This test has not been cleared or approved by the U.S. Food and Drug Administration. Test Performed by: [facility] [address] [place] [address] Documentation Engineer: Mian Tobias Ph.D.; CLIA# [id number] Nornicotine, ur <2.0 <2.0 ng/mL LINDA [facility] Urine 01/21/2025 8:14 AM CDT 01/21/2025 9:46 AM CDT us Ilana Gold MD LAB URINE ORDERABLES Final R esult [facility] Department [place] [address] [facility] * Pap with reflex to High Risk HPV (01/28/2023 7:25 AM CDT) Thin prep (Pap test) 01/28/2023 7:25 AM CDT 01/28/2023 10:14 AM CDT Narrative PATHOLOGY [facility] - 01/30/2023 11:50 AM CDT EPIC results best viewed via link to PDF [facility] Tyra Wood Laboratory [place] [address] Note to Patients: This report may contain [...] Gender: F : 1995 (Age: 27) Address: [address] [place] [phone] Hospital #: [id number] Service: HOD CARRIER Location: Patient Type: [facility] Ancillary Taken: 01/28/2023 Received: 01/28/2023 Accessioned: 01/29/2023 [...] clinical information and biopsy results as indicated. [facility] Clinical Laboratory Improvement Amendments (CLIA) mandate that cytologic and histologic results be correlated for laboratory quality control associate & improvement standards. FOR ALL HIGH-GRADE CASES [...] determined by the Surgical Pathology Department at [facility] as part of an ongoing quality control scientist program and in compliance with federally mandated [...] determined by the Surgical Pathology Department of [facility]. It has not been cleared or approved by the U. S. Food and Drug Administration. Carl Bain BLINDSTITCH LAPEL PADDER LAB CYTOLOGY ORDERABLES Mara l Result PATHOLOGY [facility] 3rd Floor [place], [place] [phone] * Hepatitis C antibody (01/23/2023 10:19 AM CDT) Hep C Ab Nonreactive Nonreactive [facility] Comment:Antibodies to HCV no t detected. Does NOT exclude the possibility of recent exposure to HCV. Current interpretive data was last revised on 22 Blood 01/23/2023 10:1 9 AM CDT 01/23/2023 10:53 AM CDT Rosanna Covington NP LAB MICROBIOLOGY - GEN ERAL ORDERABLES Final Result Performing Organization Address [facility] Co de Phone Number [facility] [place] [address] from Last 3 Months or Most Recently Relevant to Health Maintenance Insurance [facility] IDPA [facility] CHOICE PLUS AETNA [facility] Advance Directives For more information, please contact: [phone] * Full Code (Latest Code Status on [...] n case of cardiopulmonary arrest Care Teams Mock Up Builder Relationship Specialty Start Date End Date Tin Engle MD PCP - General Family Medicine 12/07/19
--- OUTSIDE RECORDS SUMMARY | 2025-04-21 21:18 | XMS_ITS | Referral Summary ---
Author Organization [facility] Address [address] [place] [address] Care Team Providers Care Exhibit Builder Name Role Phone Tin Engle MD Primary Care Provider [phone] Encounters Date Type Department Care Team Description 01/27/2025 Telephone [facility] Department of Surgery [address] 12th [place] [address] [place] [address] Prema Horan 01/21/2025 8:10 AM CDT Lab [facility] [address] [place] [address] for Outpatient Health [place], [place] [id number] Umbilical hernia without obstruction and without gangrene [...] # Disposition: Follow up task sent to [facility] scheduling pool. Continue routine care. Desires dc [...] Education: Completed in all 3 trimesters [x] Catalogue Compiler: Dr. Flavio Munguia [x ] Car seat [...] often do you attend chur ch or jewish services? Never 08/10/2023 Do you belong to any clubs o r organizations such as baptism groups, unions, fraternal or athletic groups, or [...] staff should administer the PHQ-9) 0 12/21/2019 [facility] Occupat ional Health - Occupational Stress [...] in a penitentiary (including now)? 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 in a manner consistent with CLIA requirements. This test has not been cleared or approved by the U.S. Food and Drug Administration. Test Performed by: [facility] Laboratories - [place] [address] [place] [address] Acupuncture Physician: Mian Tobias Ph.D.; CLIA# [id number] Nornicotine, ur <2.0 <2.0 ng/mL [facility] Urine 01/21/2025 8:14 AM CDT 01/21/2025 9:46 AM CDT us Ilana Gold MD LAB URINE ORDERABLES Final R esult [facility]DA [facility] [place] [address] [facility] * Pap with reflex to High Risk HPV (01/28/2023 7:25 AM CDT) Thin prep (Pap test) 01/28/2023 7:25 AM CDT 01/28/2023 10:14 AM CDT Narrative PATHOLOGY [facility] - 01/30/2023 11:50 AM CDT EPIC results best viewed via link to PDF [facility] Tyra Wood Laboratory [place] [address] Note to Patients: This report may contain [...] Gender: F : 1995 (Age: 27) Address: [address] [place], [place] [phone] Hospital #: [id number] Service: VTC TECHNICIAN Location: Patient Type: [facility] Ancillary Taken: 01/28/2023 Received: 01/28/2023 Accessioned: [...] and histologic results be correlated for laboratory vice president quality assurance & improvement standards. FOR ALL HIGH-GRADE CASES [...] determined by the Surgical Pathology Department at [facility] as part of an ongoing software quality tester program and in compliance with federally mandated [...] determined by the Surgical Pathology Department of [facility]. It has not been cleared or approved by the U. S. Food and Drug Administration. Carl Bain NP LAB CYTOLOGY ORDERABLES Mara monteiro Result PATHOLOGY [facility] 3rd Floor [place], [place] [phone] * Hepatitis C antibody (01/23/2023 10:19 AM CDT) Hep C Ab Nonreactive Nonreactive [facility] Comment:Antibodies to HCV no t detected. Does NOT exclude the possibility of recent exposure to HCV. Current interpretive data was last revised on 22 Blood 01/23/2023 10:1 9 AM CDT 01/23/2023 10:53 AM CDT us Rosanna Covington THEATER USHER LAB MICROBIOLOGY - GEN ERAL ORDERABLES Final Result LINDA [facility] [place] [address] from Last 3 Months or Most Recently Relevant to Health Maintenance Insurance AETNA [facility] [place] IDPA [facility] CHOICE PLUS AETNA BETTER [facility] [place] Advance Directives For more information, please contact: [phone] * Full Code (Latest Code Status on [...] n case of cardiopulmonary arrest Care Teams Exhibit Builder Relationship Specialty Start Date End Date Tin Engle MD PCP - General Family Medicine 12/07/19
--- OUTSIDE RECORDS SUMMARY | 2025-04-21 21:18 | XMS_ITS | Encounter Summary ---
Author Organization [facility] Address Critical access hospital[address] [place] [address] Care Team Providers Care Sewing Machine Operator Semiautomatic Name Role Phone Jenniffer Londono MD Primary Care Provider + [phone] Dario Sharma MD Unavailable Unavailable Encounter Details Date Type Department Care Team (Late st Contact Info) Description 08/13/2024 [place] Message Enc [facility] [facility], [email or web address] [address] [place], [place] [phone] Ruma Up, HOUSE CLEANER-C Three [facility]. [facility] [[email or web address]] [address] [place], [place] [phone] Fmla Social History Tobacco Use Types Packs/Day Years Used Date Smoking Tobacco: Never Passive Smoke Exposure: Never Smokeless Tobacco: Never Comments:Patient reports she used use e- ciggs and quit in 2019. Also used to smoke cigarillos Alcohol Use Standard Drinks/Week Comments Never 0 (1 standard drink = 0.6 oz pur e alcohol) [facility] Utilities Answer Date Recorded In [...] How often do you attend chur or orthodoxy services? Patient declined 08/19/2023 Do you belong to any clubs o r organizations such as yazidi groups, unions, fraternal or athletic groups, or [...] Recorded Patient Health Questionnaire-2 Score 0 10/09/2023 [facility] of Occupat ional Health - Occupational Stress [...] in a senior living (including now)? 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 Answer Date of Assessment Author Status No 08/20/2023 12:00 AM SUPERVISOR PULLET FARM Seema Anderson RN Active documented as of this encounter Mental Status * Because of a physical, mental, or emotional condition, do you have serious difficulty concentrating, remembering, or making decisions? Answer Entry Date Author Status No 08/20/2023 12:00 AM SUPERVISOR PULLET FARM Seema Anderson RN Active documented in this encounter Plan of Treatment Upcoming Encounters Date Type Department Care Team (Late st Contact Info) Description 04/22/2025 11:20 AM CDT Office Visit [facility] Medical Group Multispecialty Care - [address] [place] [address] Anthony Courtney MD [address] [place] [address] [address] [place] [address] 08/17/2025 2:30 PM SUPERVISOR PULLET FARM Office Visit [facility], [address] [place], [place] [phone] David Rosas MD [facility]. [facility] [[email or web address] [address] [place], [place] [address] documented as of this encounter Visit Diagnoses Not on filedocumented in this encounter Additional Health Concerns Infection Onset Date Last Indicated Resolved Time COVID-19 Rule Out 08/28/2024 08/28/2024 08/28/2024 1:23 PM SUPERVISOR PULLET FARM Assessment Noted Time PHQ-9 Depression Total Score: 0 10/09/19 9:28 AM SUPERVISOR PULLET FARM documented as of this encounter Care Teams Sewing Machine Operator Semiautomatic Relationship Specialty Start Date End Date Jenniffer Londono MD [address] [facility] [address] [place] [phone] PCP - General FAMILY PRACTICE 10/09/23 Dario Sharma MD [address] [facility] [address] [place] [address] Consulting Physician INTERVENTIONAL CARDIOLOGY 10/09/23 documented as of this encounter
--- OUTSIDE RECORDS SUMMARY | 2025-04-21 21:18 | XMS_ITS | Encounter Summary ---
Author Organization [facility] Address [address] [place] [address] Care Team Providers Care Harness Builder Name Role Phone Jenniffer Londono MD Primary Care Provider + [phone] Dario Sharma MD Unavailable Unavailable Reason for Referral * Consultation (Routine) - Denied Specialty Diagnoses / Procedures Referred By Ahmet lopes Referred To Contact SLEEP & RESPIRATORY CARE Diagnoses Mild sleep apnea Procedures OFFICE/OUTPATIENT NEW LOW MDM 30-44 MINUTES OFFICE/OUTPT VISIT,NEW,LEVL IV OFFICE/OUTPT VISIT,NEW,LEVL V OFFICE/OUTPT VISIT,EST,LEVL III OFFICE/OUTPT VISIT,EST,LEVL IV OFFICE/OUTPT VISIT,EST,LEVL V David Rosas MD [facility]. [address] [address] Phone: tel: fax: Referral ID Status Reason Start Date Expiration Date V isits Requested Visits Authorized [id number] Denied Specialty Services 07/30/2024 07/30/2025 1 0 Reason for Visit * Reason Onset Date Comments Referral 07/29/2024 Encounter Details Date Type Department Care Team (Late st Contact Info) Description 07/29/2024 MyChart Message Enc [facility] [place] [address] [place] [address] David Rosas MD [facility]. [address] [address] Referral for sleep apnea Social History Tobacco Use Types Packs/Day Years Used Date Smoking Tobacco: Never Passive Smoke Exposure: Never Smokeless Tobacco: Never Comments:Patient reports she used use e- ciggs and quit in 2019. Also used to smoke cigarillos Alcohol Use Standard Drinks/Week Comments Never 0 (1 standard drink = 0.6 oz pur e alcohol) [facility] Utilities Answer Date Recorded In the past 12 months has e [employer], gas, oil, or water [employer] threatened to shut off services in your [...] often do you attend chur ch or latter-day services? Patient declined 08/19/2023 Do you belong to any clubs o r organizations such as uatsdin groups, unions, fraternal or athletic groups, or [...] Recorded Patient Health Questionnaire-2 Score 0 10/09/2023 [facility] ional [facility] - [...] place to sleep or slept in a fdc (including now)? No 08/19/2023 Comments No Sex and Gender Information Value Date Recorded Sex Assigned at Female 02/11/2025 3:24 PM CDT Legal Sex Female 8:33 AM ROTARY DRILL RIG OPERATOR Gender Identity Female 02/11/2025 3:24 PM [...] this encounter Progress Notes * Rosanna Dubon Desktop Architect - 07/30/2024 10:13 AM CDT New referral sent to [facility] Pulmonary documented in this encounter Plan of Treatment Upcoming Encounters Date Type Department Care Team (Late st Contact Info) Description 04/22/2025 11:20 AM CDT Office Visit [facility] Medical Group Multispecialty Care - [address] [place] [address] Anthony Courtney MD 3rd [facility] [address] [place] [address] 08/17/2025 2:30 PM ROTARY DRILL RIG OPERATOR Office Visit [facility], [address] [place] [address] David Rosas MD Three [facility]. [address] [place] [address] Scheduled Referrals Name Type Priority Associated Diagnoses Orde r Schedule Ambulatory referral to Pulmonology/Sleep and Respiratory Care Referral Routine Mild sleep apnea Ordered: 07/30/2024 documented as of this encounter Visit Diagnoses Diagnosis Mild sleep apnea- Primary Unspecified sleep apnea documented in this encounter Additional Health Concerns Infection Onset Date Last Indicated Resolved Time COVID-19 Rule Out 08/28/2024 08/28/2024 08/28/2024 1:23 PM ROTARY DRILL RIG OPERATOR Assessment Noted Time PHQ-9 Depression Total Score: 0 10/09/19 24 9:28 AM ROTARY DRILL RIG OPERATOR documented as of this encounter Care Teams Harness Builder Relationship Specialty Start Date End Date Jenniffer Londono MD [address] [facility] [address] [place] [phone] PCP - General FAMILY PRACTICE 10/09/23 Dario Sharma MD [address] [place] [address] Consulting Physician INTERVENTIONAL CARDIOLOGY 10/09/23 documented as of this encounter
--- OUTSIDE RECORDS SUMMARY | 2025-04-21 21:18 | XMS_ITS | Clinical Summary ---
Author Organization [facility] Address [address] [place] [address] Care Team Providers Care Jewel Bearing Broacher Name Role Phone Unavailable Primary Care Provider Unavailabl e Source Comments [facility],non-owned Affiliates and Associated Physician Practices is amultiple site organization consisting of ambulatory clinics and hospital sitesin [place], [place], [place] and [place]. This disclosure is being madepursuant to the Care Everywhere program and may not contain all information available regarding this patient. Last updated 18.[facility] [employer] Allergies Active Allergy Reactions Criticality Noted Date [...] Sex Assigned at Female 10/05/2021 4:12 AM FOLDER HAND Legal Sex Female 5:36 AM FOLDER HAND Gender Identity Not on file Sexual Orientation Straight 10/05/2021 4: 12 AM FOLDER HAND Plan of Treatment Health Maintenance Due Date [...]
--- OUTSIDE RECORDS SUMMARY | 2025-04-21 21:18 | XMS_ITS | Encounter Summary ---
Author Organization [facility] Address [facility] [place] [address] Care Team Providers Care Passenger Car Conductor Name Role Phone Jenniffer Londono MD Primary Care Provider + [phone] Dario Sharma MD Unavailable Unavailable Encounter Details Date Type Department Care Team (Late st Contact Info) Description 07/07/2024 [facility] Message Enc [facility] [facility], [facility] [address] [place] [id number] Ruma Up, SOLUTIONS MARKET CONSULTANT-C [facility]. [facility] [address] [place], [place] [id number] Headaches Social History Tobacco Use Types Packs/Day Years Used Date Smoking Tobacco: Never Passive Smoke Exposure: Never Smokeless Tobacco: Never Comments:Patient reports she used use e- ciggs and quit in 2019. Also used to smoke cigarillos Alcohol Use Standard Drinks/Week Comments Never 0 (1 standard drink = 0.6 oz pur e alcohol) [facility] Utilities Answer Date Recorded In the [...] week 08/19/2023 How often do you attend [facility] or christian services? Patient declined 08/19/2023 Do you belong [...] Recorded Patient Health Questionnaire-2 Score 0 10/09/2023 [facility] Occupat ional Health - Occupational [...] PM CDT Legal Sex Female 8:33 AM CLIENT MANAGER Gender Identity Female 02/11/2025 3:24 PM [...] Assessment Author Status No 08/20/2023 12:00 AM CLIENT MANAGER Seema Anderson, RN Active * Because of a physical, mental, or emotional condition, do you have difficulty doing errands alone such as visiting a doctor's office or shopping? Answer Date of Assessment Author Status No 08/20/2023 12:00 AM CLIENT MANAGER Seema Anderson RN Active documented as of this encounter Mental Status * Because of a physical, mental, or emotional condition, do you have serious difficulty concentrating, remembering, or making decisions? Answer Entry Date Author Status No 08/20/2023 12:00 AM CLIENT MANAGER Seema Anderson, RN Active documented in this encounter Plan of Treatment Upcoming Encounters Date Type Department Care Team (Late st Contact Info) Description 04/22/2025 11:20 AM CDT Office Visit [facility] Medical Group Multispecialty Care - [address] [place] [address] Anthony Courtney MD [address] [place] [address] [address] [place] [address] 08/17/2025 2:30 PM CLIENT MANAGER Office Visit [facility], [address] [place], [place] [id number] David Rosas MD [facility]. [facility] [address] [place], [place] [phone] documented as of this encounter Visit Diagnoses Not on filedocumented in this encounter Additional Health Concerns Infection Onset Date Last Indicated Resolved Time COVID-19 Rule Out 08/28/2024 08/28/2024 08/28/2024 1:23 PM CLIENT MANAGER Assessment Noted Time PHQ-9 Depression Total Score: 0 10/09/19 9:28 AM CLIENT MANAGER documented as of this encounter Care Teams Passenger Car Conductor Relationship Specialty Start Date End Date Jenniffer Londono MD [address] [facility] [address] [place] [phone] PCP - General FAMILY PRACTICE 10/09/23 Dario Sharma MD [address] [address] Consulting Physician INTERVENTIONAL CARDIOLOGY 10/09/23 documented as of this encounter
--- OUTSIDE RECORDS SUMMARY | 2025-04-21 21:19 | XMS_ITS | Encounter Summary ---
Author Organization [facility] Address [facility] [place] [address] Care Team Providers Care Health Safety Engineer Name Role Phone Jenniffer Londono MD Primary Care Provider + [phone] Dario Sharma MD Unavailable Unavailable Encounter Details Date Type Department Care Team (Late st Contact Info) Description 12/24/2023 [employer] Message [facility] [place] [address] [address] Dario Sharma MD Bloodwork Social History Tobacco Use Types Packs/Day Years Used Date Smoking Tobacco: Never Passive Smoke Exposure: Never Smokeless Tobacco: Never Comments:Patient reports she used use e- ciggs and quit in 2019. Also used to smoke cigarillos Alcohol Use Standard Drinks/Week Comments Never 0 (1 standard drink = 0.6 oz pur e alcohol) [facility] Utilities Answer Date Recorded In the past 12 months has [employer], gas, oil, or water [employer] threatened to shut off services in your [...] How often do you attend chur or bahai services? Patient declined 08/19/2023 Do you belong [...] Recorded Patient Health Questionnaire-2 Score 0 10/09/2023 [facility] of Occupat ional Health [...] place to sleep or slept in a usp (including now)? No 08/19/2023 Comments No Sex and Gender Information Value Date Recorded Sex Assigned at Female 02/11/2025 3:24 PM CDT Legal Sex Female 8:33 AM TELEHEALTH NURSE EDUCATOR Gender Identity Female 02/11/2025 3:24 PM CDT [...] Assessment Author Status No 08/20/2023 12:00 AM TELEHEALTH NURSE EDUCATOR Seema Anderson RN Active documented as of this encounter Mental Status * Because of a physical, mental, or emotional condition, do you have serious difficulty concentrating, remembering, or making decisions? Answer Entry Date Author Status No 08/20/2023 12:00 AM TELEHEALTH NURSE EDUCATOR Seema Anderson RN Active documented in this encounter Plan of Treatment Upcoming Encounters Date Type Department Care Team (Late st Contact Info) Description 04/22/2025 11:20 AM CDT Office Visit [facility] Medical Group Multispecialty Care - [facility] [address] [facility] [facility] [address] Anthony Courtney MD [address] [facility] [address] [place] [address] 08/17/2025 2:30 PM TELEHEALTH NURSE EDUCATOR Office Visit [facility] [facility] [address] [place], [place] [address] David Rosas MD Three [facility]. [address] [place] [address] documented as of this encounter Visit Diagnoses Not on filedocumented in this encounter Additional Health Concerns Infection Onset Date Last Indicated Resolved Time COVID-19 Rule Out 08/28/2024 08/28/2024 08/28/2024 1:23 PM TELEHEALTH NURSE EDUCATOR Assessment Noted Time PHQ-9 Depression Total Score: 0 10/09/19 9:28 AM TELEHEALTH NURSE EDUCATOR documented as of this encounter Care Teams Health Safety Engineer Relationship Specialty Start Date End Date Jenniffer Londono MD [address] [facility] [address] [place] [phone] PCP - General FAMILY PRACTICE 10/09/23 Dario Sharma MD [address] [facility] [address] [place] [address] Consulting Physician INTERVENTIONAL CARDIOLOGY 10/09/23 documented as of this encounter
== END 2025-04-21 20:41 | disposition left against medical advice (07) ==
PROVIDERS: Emergency Provider Registered Nurse; PCP Family Medicine
DX: R10.32 Left lower quadrant pain (principal)
CPT/HCPCS: 36415; 80053; 83690; 85025; 85610; 85730; 99283